=== PATIENT | male | born 1945 | race Caucasian/White ===

== ENCOUNTER 2018-08-03 10:30 | Emergency (ER) | payer MEDICARE ==
[~2018-08-03] VITALS: Ht 180.3 cm; Wt 95.3 kg
[~2018-08-03 10:30] MED LIST: ALL100T PO; FAM20T PO; HYDR-531 PO; IND25C PO; METO-159 PO
[2018-08-03 10:52] VITALS: BP 151/101
== END 2018-08-03 11:56 | disposition home or self-care (01) ==
LOC: ER 10:30
DX: M25.521 Pain in right elbow (principal); E78.5 Hyperlipidemia, unspecified; I10 Essential (primary) hypertension; Z79.899 Other long term (current) drug therapy
CPT/HCPCS: 73080

== ENCOUNTER 2018-12-18 09:49 | Emergency (ER) | payer MEDICARE ==
[~2018-12-18] VITALS: Ht 180.3 cm; Wt 97.5 kg
[~2018-12-18 09:49] MED LIST changes: -IND25C PO; +INDO25CA17 PO
[2018-12-18 10:02] VITALS: BP 135/85
== END 2018-12-18 10:53 | disposition home or self-care (01) ==
LOC: ER 09:49
DX: H10.32 Unspecified acute conjunctivitis, left eye (principal); I10 Essential (primary) hypertension; E78.00 Pure hypercholesterolemia, unspecified; Z79.899 Other long term (current) drug therapy

== ENCOUNTER → 2019-01-13 | Outpatient (CLI) | payer MEDICARE | END | disposition home or self-care (01) | LOC: Rad HDHVI 12:53 | PROVIDERS: ATTEND Internal Medicine Cardiovascular Disease | DX: I08.1 Rheumatic disorders of both mitral and tricuspid valves (principal); I10 Essential (primary) hypertension; R00.2 Palpitations; R42 Dizziness and giddiness | CPT/HCPCS: 93306; 93880 ==

== ENCOUNTER 2019-01-29 10:40 | Emergency (ER) | payer MEDICARE ==
[~2019-01-29] VITALS: Ht 180.3 cm; Wt 90.7 kg
[2019-01-29 11:17] VITALS: BP 142/91
[2019-01-29] MEDS ORDERED: ACETAMINOPHEN 500 MG TAB PO ONE (13:00)
== END 2019-01-29 13:11 | disposition home or self-care (01) ==
LOC: ER 10:40
DX: M17.12 Unilateral primary osteoarthritis, left knee (principal); I12.9 Hypertensive chronic kidney disease with stage 1 through stage 4 chronic kidney disease, or unspecified chronic kidney disease; N18.9 Chronic kidney disease, unspecified; E78.5 Hyperlipidemia, unspecified
CPT/HCPCS: 73562

== ENCOUNTER → 2019-02-01 | Outpatient (CLI) | payer MEDICARE ==
[~2019-02-01] VITALS: Ht 180.3 cm; Wt 92.5 kg
[~2019-02-01] MED LIST changes: +ADENOSINE 78 MG in GIVE UN-DILUTED 0 ML IV ONE; +ADENOSINE 90 MG/30 ML INJ IV ONE; +METOPROLOL SUCCINATE XL 50 MG TAB PO ONE
[2019-02-01 16:09] LABS: Albumin 3.2 g/dL (3.4-5.0); Calcium 9.3 mg/dL (8.5-10.1); Potassium 3.4 mmol/L (3.5-5.1)
[2019-02-01 16:13] LABS: BUN/Creatinine Ratio 16.2; Bilirubin, Total 1.3 mg/dL (0.2-1.0); Total Protein 7.5 g/dL (6.4-8.2)
== END | disposition home or self-care (01) ==
LOC: Rad HDHVI 12:35
PROVIDERS: ATTEND Internal Medicine Cardiovascular Disease
DX: R00.0 Tachycardia, unspecified (principal); I10 Essential (primary) hypertension; R06.02 Shortness of breath; R42 Dizziness and giddiness
CPT/HCPCS: 36415; 78452; 80053; 83735; 93005; 96374; 96375; A9500; J0153

== ENCOUNTER 2019-02-05 12:25 | Emergency (ER) | payer MEDICARE, OTHER ==
[~2019-02-05] VITALS: Ht 180.3 cm; Wt 90.7 kg
[~2019-02-05 12:25] MED LIST changes: -ADENOSINE 78 MG in GIVE UN-DILUTED 0 ML IV ONE; -ADENOSINE 90 MG/30 ML INJ IV ONE; -METOPROLOL SUCCINATE XL 50 MG TAB PO ONE
[2019-02-05 12:51] VITALS: BP 131/80
[2019-02-05] MEDS ORDERED: methylPREDNISolone SOD SUCC 125 MG/2 ML VL IM ONE (13:45)
== END 2019-02-05 14:30 | disposition home or self-care (01) ==
LOC: ER 12:32
DX: M10.9 Gout, unspecified (principal); E78.5 Hyperlipidemia, unspecified; I10 Essential (primary) hypertension; Z88.6 Allergy status to analgesic agent; Z79.899 Other long term (current) drug therapy
CPT/HCPCS: 96372; 99283; J2930

== ENCOUNTER 2022-08-09 21:46 | Emergency (ER) | payer MEDICARE, OTHER ==
[~2022-08-09] VITALS: Ht 180.3 cm; Wt 95.7 kg
[~2022-08-09 21:46] MED LIST changes: -FAM20T PO; +FAMO20TA10 PO
[2022-08-09] MEDS ORDERED: KETOROLAC TROMETH 60MG/2ML VIAL IM ONE (22:15)
[2022-08-09 22:37] LABS: Basophils # (auto) 0.1 10 ^3/uL (0-0.2); Eosinophils # (auto) 0.2 10 ^3/uL (0-0.8); Eosinophils % (auto) 1.4 % (0.0-7.0); Hematocrit 46.2 % (41.0-53.0); Hemoglobin 16.2 g/dL (13.5-17.5); Lymphocytes % (auto) 7.8 % (10.0-50.0); Mean Corpuscular Volume 88.6 fL (80.0-100.0); Monocytes # (auto) 1.3 10 ^3/uL (0-1.3); Monocytes % (auto) 10.3 % (0.0-12.0); Neutrophils # (auto) 10.1 10 ^3/uL (1.6-8.6); Neutrophils % (auto) 79.5 % (37.0-80.0); Nucleated Red Blood Cells % 0.1 %; Red Blood Cells 5.21 10^6/uL (4.5-5.90); Red Cell Distribution Width 13.6 % (11.8-14.3); White Blood Cell 12.7 10^3/uL (4.4-10.8)
[2022-08-09 22:45] LABS: Albumin 4.1 g/dL (3.4-5.0); Calcium 9.5 mg/dL (8.5-10.1); Potassium 3.4 mmol/L (3.5-5.1)
[2022-08-09 22:49] LABS: Bilirubin, Total 0.6 mg/dL (0.2-1.0); Total Protein 7.5 g/dL (6.4-8.2); Uric Acid 5.6 mg/dL (3.5-7.2)
[2022-08-10] MEDS ORDERED: HYDR-4902 PO (00:01)
[2022-08-10] MEDS ORDERED: IBUP600T27 PO (00:01)
[2022-08-10 00:04] VITALS: BP 144/92
== END 2022-08-10 02:07 | disposition home or self-care (01) ==
LOC: ER 21:46
DX: S52.101A Unspecified fracture of upper end of right radius, initial encounter for closed fracture (principal); E78.5 Hyperlipidemia, unspecified; I10 Essential (primary) hypertension; Z88.6 Allergy status to analgesic agent; X58.XXXA Exposure to other specified factors, initial encounter; Y93.89 Activity, other specified; Y92.89 Other specified places as the place of occurrence of the external cause; Y99.8 Other external cause status
CPT/HCPCS: 29105; 36415; 73080; 80053; 84550; 85025; 96372; 99284; J1885

== ENCOUNTER 2022-09-17 14:51 | Emergency (ER) | payer OTHER ==
[~2022-09-17] VITALS: Ht 180.3 cm; Wt 91.9 kg
[~2022-09-17 14:51] MED LIST changes: +HYDR-4902 PO; +IBUP-1454 PO; +INDO-34 PO; -INDO25CA17 PO
[2022-09-17 15:35] VITALS: BP 142/89
== END 2022-09-17 16:54 | disposition home or self-care (01) ==
LOC: ER 14:51
DX: S00.86XA Insect bite (nonvenomous) of other part of head, initial encounter (principal); E78.5 Hyperlipidemia, unspecified; I10 Essential (primary) hypertension; Z88.5 Allergy status to narcotic agent; W57.XXXA Bitten or stung by nonvenomous insect and other nonvenomous arthropods, initial encounter; Y93.89 Activity, other specified; Y92.89 Other specified places as the place of occurrence of the external cause; Y99.8 Other external cause status

== ENCOUNTER 2022-10-03 15:53 | Emergency (ER) | payer OTHER ==
[~2022-10-03] VITALS: Ht 180.3 cm; Wt 92.3 kg
[2022-10-03] MEDS ORDERED: ACETAMINOPHEN 325 MG TAB PO ONE (16:30)
[2022-10-03 16:34] VITALS: BP 130/82
[2022-10-03] MEDS ORDERED: methylPREDNISolone ACETATE 80 MG/ML VL IM ONE (17:00)
[2022-10-03] MEDS ORDERED: KETOROLAC TROMETH 30 MG/ML 1ML VIAL IM ONE (17:00)
[2022-10-03] MEDS ORDERED: DexAMETHasone SOD PHOS 10MG/1ML VIAL INJ IM ONE (17:30)
[2022-10-03 17:35] LABS: Eosinophils # (auto) 0.1 10 ^3/uL (0-0.8); Mean Corpuscular Hgb Conc. 34.8 g/dL (32.0-36.0); Red Blood Cells 4.97 10^6/uL (4.5-5.90)
[2022-10-03 17:36] LABS: BUN/Creatinine Ratio 14.4 (10.0-20.0); Calcium 9.4 mg/dL (8.5-10.1)
[2022-10-03 17:49] LABS: Basophils # (auto) 0 10 ^3/uL (0-0.2); Basophils % (auto) 0.4 % (0.0-2.0); Eosinophils % (auto) 0.4 % (0.0-7.0); Hematocrit 43.4 % (41.0-53.0); Hemoglobin 15.1 g/dL (13.5-17.5); Lymphocytes # (auto) 0.8 10 ^3/uL (0.4-5.4); Lymphocytes % (auto) 6.9 % (10.0-50.0); Mean Corpuscular Hemoglobin 30.4 pg (28.0-32.0); Mean Corpuscular Volume 87.4 fL (80.0-100.0); Monocytes # (auto) 1.4 10 ^3/uL (0-1.3); Neutrophils # (auto) 9.4 10 ^3/uL (1.6-8.6); Neutrophils % (auto) 80.3 % (37.0-80.0); Red Cell Distribution Width 13.4 % (11.8-14.3); White Blood Cell 11.7 10^3/uL (4.4-10.8)
[2022-10-03 17:56] LABS: Potassium 2.8 mmol/L (3.5-5.1)
[2022-10-03] MEDS ORDERED: CEPH500C PO (18:11)
[2022-10-03] MEDS ORDERED: PRED20TA2 PO (18:11)
[2022-10-03] MEDS ORDERED: POTASSIUM EFFERVESENT TAB 25 MEQ PO ONE (18:15)
== END 2022-10-03 18:37 | disposition home or self-care (01) ==
LOC: ER 15:53
DX: M10.9 Gout, unspecified (principal); E87.6 Hypokalemia; E78.5 Hyperlipidemia, unspecified; I10 Essential (primary) hypertension; Z88.6 Allergy status to analgesic agent; Z88.1 Allergy status to other antibiotic agents
CPT/HCPCS: 36415; 80048; 84550; 85025; 93971; 96372; 99285; J1100; J1885

== ENCOUNTER 2022-11-20 04:48 | Emergency (ER) | payer OTHER ==
[~2022-11-20] VITALS: Ht 180.3 cm; Wt 92.3 kg
[~2022-11-20 04:48] MED LIST changes: +AMLO1TAB23 PO; -FAMO20TA10 PO; -HYDR-4902 PO; -IBUP-1454 PO; -INDO-34 PO; -METO-159 PO; +MODA100T52 PO; +PRIM50TA5 GT; +TAMS0.4C36 PO; +TRIA75TA11 PO
[2022-11-20 05:43] LABS: Basophils # (auto) 0.1 10 ^3/uL (0-0.2); Basophils % (auto) 0.5 % (0.0-2.0); Eosinophils # (auto) 0.3 10 ^3/uL (0-0.8); Eosinophils % (auto) 2.8 % (0.0-7.0); Hematocrit 44.4 % (41.0-53.0); Hemoglobin 15.4 g/dL (13.5-17.5); Lymphocytes # (auto) 1.2 10 ^3/uL (0.4-5.4); Lymphocytes % (auto) 10.5 % (10.0-50.0); Mean Corpuscular Hemoglobin 30.6 pg (28.0-32.0); Mean Corpuscular Hgb Conc. 34.6 g/dL (32.0-36.0); Mean Corpuscular Volume 88.4 fL (80.0-100.0); Monocytes # (auto) 1.3 10 ^3/uL (0-1.3); Neutrophils # (auto) 8.3 10 ^3/uL (1.6-8.6); Neutrophils % (auto) 74.2 % (37.0-80.0); Nucleated Red Blood Cells % 0.1 %; Red Blood Cells 5.02 10^6/uL (4.5-5.90); Red Cell Distribution Width 14.1 % (11.8-14.3); White Blood Cell 11.2 10^3/uL (4.4-10.8)
[2022-11-20 05:51] LABS: INR 1.04 (0.9-1.15); Prothrombin Time 10.9 sec (9.3-11.8)
[2022-11-20] MEDS ORDERED: KETOROLAC TROMETH 30 MG/ML 1ML VIAL IV ONE (06:00)
[2022-11-20] MEDS ORDERED: SODIUM CHLORIDE 0.9% 1,000 ML IV ONE (06:00)
[2022-11-20 06:10] LABS: Albumin 3.7 g/dL (3.4-5.0); BUN/Creatinine Ratio 13.1 (10.0-20.0); Bilirubin, Total 0.8 mg/dL (0.2-1.0); Calcium 9.6 mg/dL (8.5-10.1); Total Protein 7.6 g/dL (6.4-8.2)
[2022-11-20 06:20] LABS: Potassium 2.9 mmol/L (3.5-5.1)
[2022-11-20] MEDS ORDERED: POTASSIUM EFFERVESENT TAB 25 MEQ PO ONE (06:30)
[2022-11-20] MEDS ORDERED: DexAMETHasone SOD PHOS 4 MG/1ML SDV INJ IM ONE (08:15)
[2022-11-20] MEDS ORDERED: BUPIVACAINE 0.5% INJ 50ML VIAL IJ ONE (08:15)
[2022-11-20] MEDS ORDERED: DexAMETHasone SOD PHOS 10MG/1ML VIAL INJ ONE (09:14)
[2022-11-20] MEDS ORDERED: DICL50TA2 PO (10:11)
[2022-11-20] MEDS ORDERED: DICL1GEL59 EX (10:11)
[2022-11-20 10:30] VITALS: BP 132/76; PULSE 73; RESP 21; TEMP 98.4; O2SAT 99
== END 2022-11-20 10:32 | disposition home or self-care (01) ==
LOC: ER 04:48
DX: M75.52 Bursitis of left shoulder (principal); E87.6 Hypokalemia; I12.9 Hypertensive chronic kidney disease with stage 1 through stage 4 chronic kidney disease, or unspecified chronic kidney disease; N18.30 Chronic kidney disease, stage 3 unspecified; I25.10 Atherosclerotic heart disease of native coronary artery without angina pectoris; E78.5 Hyperlipidemia, unspecified; M10.9 Gout, unspecified; Z79.899 Other long term (current) drug therapy; Z88.5 Allergy status to narcotic agent
CPT/HCPCS: 20552; 36415; 71045; 73030; 80053; 83880; 84484; 85025; 85379; 85610; 85730; 93005; 96361; 96372; 96374; 99285; J1100; J1885; J3490; J7030

== ENCOUNTER 2023-02-17 17:17 | Emergency (ER) | payer OTHER ==
[~2023-02-17] VITALS: Ht 180.3 cm; Wt 93.0 kg
[~2023-02-17 17:17] MED LIST changes: +DICL1GEL59 EX; +DICL50TA2 PO
[2023-02-17 17:21] VITALS: BP 140/88; RESP 18; O2SAT 94
[2023-02-17 18:38] LABS: Basophils # (auto) 0.1 10 ^3/uL (0-0.2); Basophils % (auto) 0.7 % (0.0-2.0); Eosinophils # (auto) 0.4 10 ^3/uL (0-0.8); Eosinophils % (auto) 4.2 % (0.0-7.0); Hematocrit 44.4 % (41.0-53.0); Hemoglobin 15.4 g/dL (13.5-17.5); Lymphocytes # (auto) 1.5 10 ^3/uL (0.4-5.4); Lymphocytes % (auto) 14.5 % (10.0-50.0); Mean Corpuscular Hemoglobin 30.9 pg (28.0-32.0); Mean Corpuscular Hgb Conc. 34.7 g/dL (32.0-36.0); Mean Corpuscular Volume 89.2 fL (80.0-100.0); Monocytes # (auto) 1.4 10 ^3/uL (0-1.3); Monocytes % (auto) 13.8 % (0.0-12.0); Neutrophils % (auto) 66.8 % (37.0-80.0); Nucleated Red Blood Cells % 0.1 %; Red Blood Cells 4.97 10^6/uL (4.5-5.90); Red Cell Distribution Width 13.4 % (11.8-14.3); White Blood Cell 10.4 10^3/uL (4.4-10.8)
[2023-02-17 18:50] LABS: Alanine Aminotransferase 13 U/L (7-40); Albumin 4.8 g/dL (3.2-4.8); Alkaline Phosphatase 111 U/L (46-116); Anion Gap 8 (5-15); Aspartate Aminotransferase 13 U/L (13-40); BUN/Creatinine Ratio 10.9 (10.0-20.0); Blood Urea Nitrogen 15 mg/dL (9-23); Calcium 10.1 mg/dL (8.7-10.4); Carbon Dioxide 26 mmol/L (20-30); Chloride 106 mmol/L (98-107); Glucose 87 mg/dL (74-106); Lipase 47 U/L (12-53); Potassium 3.5 mmol/L (3.5-5.1); Sodium 140 mmol/L (136-145)
[2023-02-17 18:51] LABS: Bilirubin, Total 1.3 mg/dL (0.2-1.0); Total Protein 6.9 g/dL (5.7-8.2)
[2023-02-17 20:36] VITALS: PULSE 110
[2023-02-17] MEDS ORDERED: IOHEXOL 350 MG/ML 100ML IJ ONE (21:49)
[2023-02-17 22:54] LABS: Urine Bacteria NONE SEEN /hpf (None Seen); Urine Blood 3+ /uL (Negative); Urine Clarity Clear (Clear); Urine Color Yellow (Yellow); Urine Mucus FEW (None Seen); Urine Protein, UAD TRACE (Negative); Urine Urobilinogen Normal (Negative); Urine WBC <1 /hpf (0 - 3)
[2023-02-17 22:59] LABS: Urine Specific Gravity > 1.050 (1.001-1.035)
== END 2023-02-18 02:44 | disposition left against medical advice (07) ==
LOC: ER 17:17
DX: K42.9 Umbilical hernia without obstruction or gangrene (principal); I12.9 Hypertensive chronic kidney disease with stage 1 through stage 4 chronic kidney disease, or unspecified chronic kidney disease; N18.9 Chronic kidney disease, unspecified; R10.33 Periumbilical pain; I25.10 Atherosclerotic heart disease of native coronary artery without angina pectoris; E78.5 Hyperlipidemia, unspecified; Z98.890 Other specified postprocedural states; Z88.8 Allergy status to other drugs, medicaments and biological substances; Z79.899 Other long term (current) drug therapy
CPT/HCPCS: 36415; 71045; 74177; 80053; 81001; 83605; 83690; 84484; 85025; 87040; 93005; 99285; Q9967

== ENCOUNTER 2024-04-02 12:17 | Emergency (ER) | payer OTHER ==
[~2024-04-02] VITALS: Ht 180.3 cm; Wt 93.0 kg
[~2024-04-02 12:17] MED LIST changes: -TAMS0.4C36 PO; +TAMS0.4C39 PO
[2024-04-02 13:13] VITALS: TEMP 97.7
--- NOTE | 2024-04-02 14:02 | ED.PDOC ---
History of Present Illness HPI Comments A 78 YEAR OLD MALE PRESENTS TO THE ED WITH COMPLAINT OF HIGH BLOOD PRESSURE. PATIENT STATES HE HAS A HISTORY OF HYPERTENSION AND NOTES HE HAS NOTICED HIS BLOOD PRESSURE HAS BEEN HIGHER THAN USUAL FOR THE PAST 1 WEEK DESPITE TAKING HIS REGULAR MEDICATIONS. PATIENT NOTES HE HAS ALSO HAD A HEADACHE OFF AND ON FOR THE PAST 1 WEEK. PATIENT DENIES VISION CHANGES, SLURRED SPEECH, ONE-SIDED WEAKNESS, FACIAL DROOP, FEVER, CHILLS, SHORTNESS OF BREATH, CHEST PAIN, ABDOMINAL PAIN, NAUSEA, VOMITING, OR OTHER COMPLAINTS. NO OTHER SYMPTOMS OR MODIFYING FACTORS AT THIS TIME. PATIENT IS ALERT, ORIENTED X 4, AND HAS STEADY GAIT. Chief Complaint: High Blood Pressure Time Seen by MD: 12:38 Primary Care Provider: IRENE Reviewed Notes: Nurses Notes, Medications, Allergies Allergies: Coded Allergies: Morphine (Verified Allergy, Unknown, 02/01/19) Home Meds Active Scripts Diclofenac Potassium (Diclofenac Potassium) 50 Mg Tab, 1 TAB PO TIDP for 10 Day s, #30 TAB Prov:DESTINEY CLEMONS MD 11/20/22 Diclofenac Sodium (Topical) (Voltaren Arthritis Pain) 1 % Gel, 1 % EX TID for 10 Days, #100 GEL Prov:DESTINEY CLEMONS MD 11/20/22 Allopurinol (ZYLOPRIM TABLET) 100 Mg Tb, 100 MG PO DAILY, #30 Prov:FINN PURI MD 07/05/16 Reported Medications Primidone (MYSOLINE TABLET) 50 Mg Tb, 50 MG GT for TREMORS, TAB 10/24/22 Modafinil (MODAFINIL) 100 Mg Tab, 100 MG PO for SLEEP DISORDER, TAB 10/24/22 Tamsulosin Hcl (Tamsulosin Hcl) 0.4 Mg Cap, 0.4 MG PO QPM 10/24/22 Hydrochlorothiazide W/Triamter (Hctz/Triamterene) 1 Tab Tab, 1 TAB PO DAILY, TAB 10/24/22 Amlodipine Besylate (Amlodipine Besylate) 10 Mg Tab, 1 TAB PO DAILY for HTN 10/24/22 Hydrocodone-Acetaminophen ([place] 10-325 mg) 1 Tab Tab, 0.5 TAB PO BIDPRN, TAB 07/01/16 Information Source: Patient Mode of Arrival: Ambulatory Severity: Moderate Timing: Days Duration: Since onset, Days Prehospital treatment: None Medication Refill: For: Hypertension, For: Other (HIGH BLOOD PRESSURE AND HEADACHE) Past Medical History PAST MEDICAL HISTORY: CAD, Gout, High Lipids, HTN, NV Surgical History: PTCA Family History Family History: Reviewed,noncontributory to illness Social History Smoker: Non-Smoker Alcohol: Denies ETOH Use Drugs: Denies Drug Use Lives In: Home Constitutional: reports: others (ANXIOUS ); denies: chills, diaphoresis, fatigue, fever, malaise, sweats, weakness EENTM: denies: blurred vision, double vision, ear bleeding, ear discharge, ear drainage, ear pain, ear ringing, eye pain, eye redness, hearing loss, mouth pain, mouth swelling, nasal discharge, nose bleeding, nose congestion, nose pain, photophobia, tearing, throat pain, throat swelling, voice changes, others Respiratory: denies: cough, hemoptysis, orthopnea, SOB at rest, shortness of breath, SOB with excertion, stridor, wheezing, others Cardiovascular: reports: others (HIGH BLOOD PRESSURE); denies: chest pain, dizzy spells, diaphoresis, Dyspnea on exertion, edema, irregular heart beat, left arm pain, lightheadedness, palpitations, PND, syncope Gastrointestinal: denies: abdomen distended, abdominal pain, blood streaked bowels, constipated, diarrhea, dysphagia, difficulty swallowing, hematemesis, melena, nausea, poor appetite, poor fluid intake, rectal bleeding, rectal pain, vomiting, others Genitourinary: denies: burning, dysuria, flank pain, frequency, hematuria, incontinence, penile discharge, penile sore, pain, testicle pain, testicle swelling, urgency, others Neurological: reports: headache; denies: dizziness, fainting, left sided numbness, left sided weakness, numbness, paresthesia, pre-existing deficit, right sided numbness, right sided weakness, seizure, speech problems, tingling, tremors, weakness, others Musculoskeletal: denies: back pain, gout, joint pain, joint swelling, muscle pain, muscle stiffness, neck pain, others Integumetry: denies: bruises, change in color, change in hair/nails, dryness, laceration, lesions, lumps, rash, wounds, others Allergic/Immunocompromised: denies: Difficulty Healing, Frequent Infections, Hives, Itching, others Hematologic/Lymphatic: denies: anemia, blood clots, easy bleeding, easy bruising, swollen glands, others Endocrine: denies: excessive hunger, excessive sweating, excessive thirst, excessive urination, flushing, intolerance to cold, intolerance to heat, unexplained weight gain, unexplained weight loss, others Psychiatric: denies: anxiety, bipolar disorder, depression, hopeless, panic disorder, schizophrenia, sleepless, suicidal, others All Other Systems: Reviewed and Negative Physical Exam General Appearance: No Apparent Distress, Normal, Other (ANXIOUS ) HEENT: Normal ENT Inspection, PERRL/EOMI, Pharynx Normal, TMs Normal Neck: Full Range of Motion, Non-Tender, Normal, Normal Inspection Respiratory: Chest Non-Tender, Lungs Clear, No Accessory Muscle Use, No Respiratory Distress, Normal Breath Sounds Cardiovascular: No Edema, No JVD, No Murmur, No Gallop, Normal Peripheral Pulses, Regular Rate/Rhythm Breast Exam: Deferred Gastrointestinal: No Organomegaly, Non Tender, No Pulsatile Mass, Normal Bowel Sounds, Soft Genitalia: Deferred Pelvic: Deferred Rectal: Deferred Extremities: No calf tenderness, Normal capillary refill, Normal inspection, Normal range of motion, Non-tender, No pedal edema Musculoskeletal : Apperance: Normal Neurologic: Alert, business systems advisor II-XII nml as Tested, No Motor Deficits, Normal Affect, Normal Mood, No Sensory Deficits Cerebellar Function: Normal Reflexes: Normal Skin: Dry, Normal Color, Warm Peripheral Pulses: 2+ carotid (R), 2+ carotid (L) Lymphatic: No Adenopathy Was a procedure done? Was a procedure done?: No Differential Dx Considerations may include: HYPERTENSION, UNCONTROLLED HYPERTENSION, ELECTROLYTE IMBALANCE, HYPOTHYROIDISM X-Ray, Labs, Meds, VS Vital Signs Date Time Temp Pulse Resp B/P (MAP) Pulse Ox O2 Delivery O2 Flow Rate FiO2 04/02/24 14:27 91 151/100 04/02/24 13:52 155/100 (118) 04/02/24 13:13 90 18 100 Room Air 04/02/24 13:13 97.7 90 18 131/104 (113) 100 97.7 04/02/24 12:34 97.7 90 18 131/104 (113) 100 Lab Test 04/02/24 14:20 Range/Units White Blood Count 8.9 4.4-10.8 10^3/uL Red Blood Count 5.42 4.5-5.90 10^6/uL Hemoglobin 17.1 13.5-17.5 g/dL Hematocrit 50.3 41.0-53.0 % Mean Corpuscular Volume 92.8 80.0-100.0 fL Mean Corpuscular Hemoglobin 31.5 28.0-32.0 pg Mean Corpuscular Hemoglobin Concent 33.9 32.0-36.0 g/dL Red Cell Distribution Width 13.8 11.8-14.3 % Platelet Count 228 140-450 10^3/uL Mean Platelet Volume 9.3 6.9-10.8 fL Neutrophils (%) (Auto) 69.4 37.0-80.0 % Lymphocytes (%) (Auto) 16.7 10.0-50.0 % Monocytes (%) (Auto) 10.3 0.0-12.0 % Eosinophils (%) (Auto) 2.8 0.0-7.0 % Basophils (%) (Auto) 0.8 0.0-2.0 % Neutrophils # (Auto) 6.2 1.6-8.6 10 ^3/uL Lymphocytes # (Auto) 1.5 0.4-5.4 10 ^3/uL Monocytes # (Auto) 0.9 0-1.3 10 ^3/uL Eosinophils # (Auto) 0.2 0-0.8 10 ^3/uL Basophils # (Auto) 0.1 0-0.2 10 ^3/uL Nucleated Red Blood Cells 0.1 % Sodium Level 142 136-145 mmol/L Potassium Level 3.4 L 3.5-5.1 mmol/L Chloride Level 108 H 98-107 mmol/L Carbon Dioxide Level 25 20-31 mmol/L Anion Gap 9 5-15 Blood Urea Nitrogen 12 9-23 mg/dL Creatinine 1.46 H 0.700-1.30 mg/dL Glomerular Filtration Rate Calc 50 >90 mL/min BUN/Creatinine Ratio 8.2 L 10.0-20.0 Serum Glucose 105 74-106 mg/dL Calcium Level 10.1 8.7-10.4 mg/dL Troponin I High Sensitivity 5 </=54 ng/L Thyroid Stimulating Hormone (TSH) 2.54 0.55-4.78 uIU/mL Current Medications Medications (Trade) Dose Ordered Sig/Deng Route Start Time Stop Time Status Last Admin Metoprolol Tartrate (Lopressor Tablet) 50 mg ONCE ONCE PO 04/02/24 14:30 04/02/24 14:31 DC 04/02/24 14:27 EXAM: CT HEAD WITHOUT CONTRAST HISTORY: HTN WITH HEADACHE COMPARISON: None TECHNIQUE: Axial images of the head were obtained and reformatted in coronal and sagittal planes. All CT scans at this medical facility are performed using dose modulation techniques as appropriate to a performed exam including the following: Automated exposure control was utilized; adjustment of the MA and/or KV according to patient size; and use of iterative reconstruction technique. CT Dose: CTDI volume is 67.11 mGy. Dose-length product is 1456.49 mGy*cm FINDINGS: There is no evidence of acute intracranial hemorrhage, mass, mass effect midline shift. There is no hydrocephalus or extra-axial fluid collection. There are moderate chronic small-vessel ischemic changes in the supratentorial white matter. Christian-white matter differentiation is maintained. The visualized paranasal sinuses and mastoid air cells are clear. The calvarium is intact. IMPRESSION: 1. No acute intracranial process. HS:Y ATED BY: FIDEL SERVIN MD DICTATED DATE/TIME: 04/02/241418 SIGNED BY: FIDEL SERVIN MD SIGNED DATE/TIME: 04/02/241418 CC: X-Ray, Labs, Meds, VS Comment EXTERNAL MEDICAL RECORDS REVIEWED: [NONE] INDEPENDENT HISTORIANS: [NONE] SOCIAL DETERMINANTS OF HEALTH: [NONE] LABS ORDERED: CBC, BMP, TSH, TROPONIN, UA REVIEWED AND INTERPRETED RESULTS: IMAGING ORDERED: CT BRAIN TREATMENTS ORDERED: LOPRESSOR 50MG PO PATIENT STATED HE FEELS MUCH BETTER AFTER RECEIVING TREATMENT. I HAVE INSTRUCTED THE PATIENT TO INCREASE HIS LOPRESSOR 25MG TO LOPRESSOR 50MG. PATIENT UNDERSTANDS AND AGREES WITH PLAN OF CARE. PROCEDURES PERFORMED: NONE CRITICAL CARE TIME: NONE I HAVE DISCUSSED THE PATIENT WITH THE ATTENDING PHYSICIAN DR. WEBB AND HE AGREES WITH THE PATIENT'S PLAN OF CARE AND DISPOSITION. BASED ON HISTORY OF PRESENT ILLNESS, AND PHYSICAL EXAM, PATIENT WILL BE DISCHARGED HOME. SHARED DECISION MAKING: PATIENT INSTRUCTED TO FOLLOW UP WITH PRIMARY CARE PROVIDER IN 1-2 DAYS FOR RE-EVALUATION OF SYMPTOMS. PATIENT VERBALIZES UNDERSTANDING TO RETURN TO ED FOR NEW OR WORSENING SYMPTOMS OR IF FOLLOW UP WITH PCP CANNOT BE OBTAINED. PATIENT FEELS COMFORTABLE GOING HOME AT THIS TIME. ALL QUESTIONS ADDRESSED AT TIME OF DISCHARGE. Images Reviewed?: Images reviewed and evaluated by me Time of 1ST Reevaluation: 15:30 Reevaluation 1ST: Improved Patient Education/Counseling: Diagnosis, Treatment, Need For Follow Up Family Education/Counseling: Diagnosis, Treatment, Need For Follow Up Medical Screening: No EMC Exist At This Time Departure 1 Departure Time of Disposition: 15:30 Impression: Primary Impression: HTN (hypertension) Qualified Codes: I10 - Essential (primary) hypertension Disposition: 01 HOME / SELF CARE / HOMELESS Condition: Stable Additional Instructions: FOLLOW-UP WITH PCP IN 1 TO 2 DAYS. TAKE MEDICATIONS PRESCRIBED. RETURN TO ED FOR ANY NEW OR WORSENING SYMPTOMS. Discharged With: Self, Relative Critical Care Note Critical Care Time?: No Stability Stability form required: No I personally scribed for MELVIN RHOADES ([email or web address]) on 04/02/24 at 14:02. Electronically submitted by William Quinteros ([email or web address]). I personally scribed for MELVIN RHOADES ([email or web address]) on 04/02/24 at 14:23. Electronically submitted by William Quinteros ([email or web address]). MELVIN RHOADES Apr 02, 2024 14:02
--- NOTE | 2024-04-02 14:20 | DVH ---
EXAM: CT HEAD WITHOUT CONTRAST HISTORY: HTN WITH HEADACHE COMPARISON: None TECHNIQUE: Axial images of the head were obtained and reformatted in coronal and sagittal planes. All CT scans at this medical facility are performed using dose modulation techniques as appropriate t o a performed exam including the following: Automated exposure control was utilized; adjustment of th e MA and/or KV according to patient size; and use of iterative reconstruction technique. CT Dose: CTDI volume is 67.11 mGy. Dose-length product is 1456.49 mGy*cm FINDINGS: There is no evidence of acute intracranial hemorrhage, mass, mass effect midline shift. There is no h ydrocephalus or extra-axial fluid collection. There are moderate chronic small-vessel ischemic change s in the supratentorial white matter. Christian-white matter differentiation is maintained. The visualized paranasal sinuses and mastoid air cells are clear. The calvarium is intact. IMPRESSION: 1. No acute intracranial process. HS:Y
[2024-04-02] MEDS: METOPROLOL TARTRATE 50 MG TAB PO ONE (14:27)
[2024-04-02 14:40] LABS: Basophils # (auto) 0.1 10 ^3/uL (0-0.2); Basophils % (auto) 0.8 % (0.0-2.0); Eosinophils # (auto) 0.2 10 ^3/uL (0-0.8); Eosinophils % (auto) 2.8 % (0.0-7.0); Hematocrit 50.3 % (41.0-53.0); Hemoglobin 17.1 g/dL (13.5-17.5); Lymphocytes # (auto) 1.5 10 ^3/uL (0.4-5.4); Lymphocytes % (auto) 16.7 % (10.0-50.0); Mean Corpuscular Hemoglobin 31.5 pg (28.0-32.0); Mean Corpuscular Hgb Conc. 33.9 g/dL (32.0-36.0); Mean Corpuscular Volume 92.8 fL (80.0-100.0); Monocytes # (auto) 0.9 10 ^3/uL (0-1.3); Monocytes % (auto) 10.3 % (0.0-12.0); Neutrophils # (auto) 6.2 10 ^3/uL (1.6-8.6); Neutrophils % (auto) 69.4 % (37.0-80.0); Nucleated Red Blood Cells % 0.1 %; Platelet Count (auto) 228 10^3/uL (140-450); Red Blood Cells 5.42 10^6/uL (4.5-5.90); Red Cell Distribution Width 13.8 % (11.8-14.3); White Blood Cell 8.9 10^3/uL (4.4-10.8)
[2024-04-02 14:52] LABS: Sodium 142 mmol/L (136-145)
[2024-04-02 14:53] LABS: Anion Gap 9 (5-15); Calcium 10.1 mg/dL (8.7-10.4); Carbon Dioxide 25 mmol/L (20-31)
[2024-04-02 14:58] LABS: BUN/Creatinine Ratio 8.2 (10.0-20.0); Blood Urea Nitrogen 12 mg/dL (9-23); Glucose 105 mg/dL (74-106)
[2024-04-02 15:05] LABS: Chloride 108 mmol/L (98-107); Potassium 3.4 mmol/L (3.5-5.1)
[2024-04-02 15:25] VITALS: BP 138/95; PULSE 83; RESP 18; O2SAT 94
[2024-04-02 15:34] LABS: Urine Bacteria FEW /hpf (None Seen); Urine Blood 2+ /uL (Negative); Urine Clarity Turbid (Clear); Urine Color Yellow (Yellow); Urine Mucus FEW (None Seen); Urine Protein, UAD TRACE (Negative); Urine Specific Gravity 1.019 (1.001-1.035); Urine Urobilinogen Normal (Negative); Urine WBC 8 /hpf (0 - 3)
== END 2024-04-02 15:34 | disposition home or self-care (01) ==
LOC: ER 12:17
DX: I10 Essential (primary) hypertension (principal); E78.5 Hyperlipidemia, unspecified; M10.9 Gout, unspecified; Z79.899 Other long term (current) drug therapy; Z88.5 Allergy status to narcotic agent
CPT/HCPCS: 36415; 70450; 80048; 81001; 84443; 84484; 85025

== ENCOUNTER 2024-08-18 17:49 | Inpatient (IN) | payer OTHER ==
[~2024-08-18] VITALS: Ht 180.3 cm; Wt 97.0 kg
[2024-08-18 18:37] LABS: Basophils # (auto) 0.1 10 ^3/uL (0-0.2); Basophils % (auto) 0.8 % (0.0-2.0); Eosinophils # (auto) 0.3 10 ^3/uL (0-0.8); Eosinophils % (auto) 3.3 % (0.0-7.0); Hematocrit 47.3 % (41.0-53.0); Hemoglobin 16.2 g/dL (13.5-17.5); Lymphocytes % (auto) 11.7 % (10.0-50.0); Mean Corpuscular Hemoglobin 31.4 pg (28.0-32.0); Mean Corpuscular Hgb Conc. 34.2 g/dL (32.0-36.0); Mean Corpuscular Volume 91.8 fL (80.0-100.0); Monocytes # (auto) 0.7 10 ^3/uL (0-1.3); Monocytes % (auto) 7.9 % (0.0-12.0); Neutrophils # (auto) 6.8 10 ^3/uL (1.6-8.6); Neutrophils % (auto) 76.3 % (37.0-80.0); Nucleated Red Blood Cells % 0.1 %; Platelet Count (auto) 200 10^3/uL (140-450); Red Blood Cells 5.15 10^6/uL (4.5-5.90); Red Cell Distribution Width 13.7 % (11.8-14.3); White Blood Cell 8.9 10^3/uL (4.4-10.8)
--- NOTE | 2024-08-18 18:41 | ED.PDOC ---
History of Present Illness HPI Comments 79 year old male presents to the ED with a chief compliant of dizziness onset today (08/18/24) around 15:30. Patient states he was walking to apartment when he felt "head explode" began experiencing dizziness, LT sided weakness, episode lasted about 15 minutes. Patient was able to drive himself to ED, states symptoms have now resolved but is concerned. He is currently on Plavix, last dose was last night. Patient checked BP at home, states it was normal. PMHx CAD, MT, HTN, HLD, gout. Denies dizziness, headache, chest pain, shortness of breath, numbness/tingling, blurry vision, abdominal pain, fevers, dysuria. No other symptoms or modifying factors present at this time. Time Seen by MD: 18:20 Primary Care Provider: IRENE Reviewed Notes: Medications, Allergies Allergies: Coded Allergies: Morphine (Verified Allergy, Unknown, 02/01/19) Home Meds Active Scripts Diclofenac Potassium (Diclofenac Potassium) 50 Mg Tab, 1 TAB PO TIDP for 10 Days, #30 TAB Prov:DESTINEY CLEMONS MD 11/20/22 Diclofenac Sodium (Topical) (Voltaren Arthritis Pain) 1 % Gel, 1 % EX TID for 10 Days, #100 GEL Prov:DESTINEY CLEMONS MD 11/20/22 Allopurinol (ZYLOPRIM TABLET) 100 Mg Tb, 100 MG PO DAILY, #30 Prov:FINN PURI MD 07/05/16 Reported Medications Primidone (MYSOLINE TABLET) 50 Mg Tb, 50 MG GT for TREMORS, TAB 10/24/22 Modafinil (MODAFINIL) 100 Mg Tab, 100 MG PO for SLEEP DISORDER, TAB 10/24/22 Tamsulosin Hcl (Tamsulosin Hcl) 0.4 Mg Cap, 0.4 MG PO QPM 10/24/22 Hydrochlorothiazide W/Triamter (Hctz/Triamterene) 1 Tab Tab, 1 TAB PO DAILY, TAB 10/24/22 Amlodipine Besylate (Amlodipine Besylate) 10 Mg Tab, 1 TAB PO DAILY for HTN 10/24/22 Hydrocodone-Acetaminophen ([place] 10-325 mg) 1 Tab Tab, 0.5 TAB PO BIDPRN, TAB 07/01/16 Information Source: Patient Mode of Arrival: Ambulatory Severity: Moderate Timing: Hours Duration: Since onset Prehospital treatment: None Past Medical History PAST MEDICAL HISTORY: CAD, Gout, High Lipids, HTN, MT Surgical History: PTCA Family History Family History: Reviewed,noncontributory to illness Social History Smoker: Non-Smoker Alcohol: Denies ETOH Use Drugs: Denies Drug Use Lives In: Home Constitutional: denies: chills, diaphoresis, fatigue, fever, malaise, sweats, weakness, others EENTM: denies: blurred vision, double vision, ear bleeding, ear discharge, ear drainage, ear pain, ear ringing, eye pain, eye redness, hearing loss, mouth pain, mouth swelling, nasal discharge, nose bleeding, nose congestion, nose pain, photophobia, tearing, throat pain, throat swelling, voice changes, others Respiratory: denies: cough, hemoptysis, orthopnea, SOB at rest, shortness of breath, SOB with excertion, stridor, wheezing, others Cardiovascular: denies: chest pain, dizzy spells, diaphoresis, Dyspnea on exertion, edema, irregular heart beat, left arm pain, lightheadedness, palpitations, PND, syncope, others Gastrointestinal: denies: abdomen distended, abdominal pain, blood streaked bowels, constipated, diarrhea, dysphagia, difficulty swallowing, hematemesis, melena, nausea, poor appetite, poor fluid intake, rectal bleeding, rectal pain, vomiting, others Genitourinary: denies: burning, dysuria, flank pain, frequency, hematuria, incontinence, penile discharge, penile sore, pain, testicle pain, testicle swelling, urgency, others Neurological: reports: dizziness, left sided weakness; denies: fainting, headache, left sided numbness, numbness, paresthesia, pre-existing deficit, right sided numbness, right sided weakness, seizure, speech problems, tingling, tremors, weakness, others Musculoskeletal: denies: back pain, gout, joint pain, joint swelling, muscle pain, muscle stiffness, neck pain, others Integumetry: denies: bruises, change in color, change in hair/nails, dryness, laceration, lesions, lumps, rash, wounds, others Allergic/Immunocompromised: denies: Difficulty Healing, Frequent Infections, Hives, Itching, others Hematologic/Lymphatic: denies: anemia, blood clots, easy bleeding, easy bruising, swollen glands, others Endocrine: denies: excessive hunger, excessive sweating, excessive thirst, excessive urination, flushing, intolerance to cold, intolerance to heat, unexplained weight gain, unexplained weight loss, others Psychiatric: denies: anxiety, bipolar disorder, depression, hopeless, panic disorder, schizophrenia, sleepless, suicidal, others All Other Systems: Reviewed and Negative Physical Exam General Appearance: No Apparent Distress, Normal HEENT: Normal ENT Inspection, Pharynx Normal, TMs Normal Neck: Full Range of Motion, Non-Tender, Normal, Normal Inspection Respiratory: Chest Non-Tender, Lungs Clear, No Accessory Muscle Use, No Respiratory Distress, Normal Breath Sounds Cardiovascular: No Edema, No JVD, No Murmur, No Gallop, Normal Peripheral Pulses, Regular Rate/Rhythm Breast Exam: Deferred Gastrointestinal: No Organomegaly, Non Tender, No Pulsatile Mass, Normal Bowel Sounds, Soft Genitalia: Deferred Pelvic: Deferred Rectal: Deferred Extremities: No calf tenderness, Normal capillary refill, Normal inspection, Normal range of motion, Non-tender, No pedal edema Musculoskeletal : Apperance: Normal Neurologic: Alert, visitor service assistant II-XII nml as Tested, No Motor Deficits, Normal Affect, Normal Mood, No Sensory Deficits Cerebellar Function: Normal Reflexes: Normal Skin: Dry, Normal Color, Warm Lymphatic: No Adenopathy Was a procedure done? Was a procedure done?: No EKG EKG : Pulse Rate (adult): 68 Cardiac Rhythm: NSR Differential Dx Considerations may include: Differential diagnosis includes but is not limited to: cardiac arrythmia, dehydration, sepsis, electrolyte abnormality, symptomatic anemia, hypovolemia and others X-Ray, Labs, Meds, VS Vital Signs Date Time Temp Pulse Resp B/P (MAP) Pulse Ox O2 Delivery O2 Flow Rate FiO2 08/18/24 19:29 68 08/18/24 18:54 68 08/18/24 18:52 98.3 69 17 126/79 (95) 94 98.3 Lab Test 08/18/24 18:57 08/18/24 18:28 Range/Units POC Glucose 98 70-106 mg/dl White Blood Count 8.9 4.4-10.8 10^3/uL Red Blood Count 5.15 4.5-5.90 10^6/uL Hemoglobin 16.2 13.5-17.5 g/dL Hematocrit 47.3 41.0-53.0 % Mean Corpuscular Volume 91.8 80.0-100.0 fL Mean Corpuscular Hemoglobin 31.4 28.0-32.0 pg Mean Corpuscular Hemoglobin Concent 34.2 32.0-36.0 g/dL Red Cell Distribution Width 13.7 11.8-14.3 % Platelet Count 200 140-450 10^3/uL Mean Platelet Volume 8.9 6.9-10.8 fL Neutrophils (%) (Auto) 76.3 37.0-80.0 % Lymphocytes (%) (Auto) 11.7 10.0-50.0 % Monocytes (%) (Auto) 7.9 0.0-12.0 % Eosinophils (%) (Auto) 3.3 0.0-7.0 % Basophils (%) (Auto) 0.8 0.0-2.0 % Neutrophils # (Auto) 6.8 1.6-8.6 10 ^3/uL Lymphocytes # (Auto) 1.0 0.4-5.4 10 ^3/uL Monocytes # (Auto) 0.7 0-1.3 10 ^3/uL Eosinophils # (Auto) 0.3 0-0.8 10 ^3/uL Basophils # (Auto) 0.1 0-0.2 10 ^3/uL Nucleated Red Blood Cells 0.1 % Prothrombin Time 10.9 9.3-11.8 sec Prothrombin Time INR 1.03 0.9-1.15 Activated Partial Thromboplast Time 28.0 24.5-34.5 SEC Sodium Level 145 136-145 mmol/L Potassium Level 3.7 3.5-5.1 mmol/L Chloride Level 110 H 98-107 mmol/L Carbon Dioxide Level 27 20-31 mmol/L Anion Gap 8 5-15 Blood Urea Nitrogen 14 9-23 mg/dL Creatinine 1.39 H 0.700-1.30 mg/dL Glomerular Filtration Rate Calc 52 >90 mL/min BUN/Creatinine Ratio 10.1 10.0-20.0 Serum Glucose 105 74-106 mg/dL Calcium Level 10.3 8.7-10.4 mg/dL Magnesium Level 1.9 1.6-2.6 mg/dL Total Bilirubin 0.5 0.2-1.0 mg/dL Aspartate Amino Transferase (AST) 18 13-40 U/L Alanine Aminotransferase (ALT) 21 7-40 U/L Alkaline Phosphatase 80 46-116 U/L Troponin I High Sensitivity 4 </=54 ng/L B-Type Natriuretic Peptide 17.87 0-100 pg/mL Total Protein 6.6 5.7-8.2 g/dL Albumin 4.6 3.2-4.8 g/dL [place] [address] Ph: [phone] DIAGNOSTIC IMAGING Diagnostic Imaging Report : [id number] Signed PATIENT: CHRISTAL LIVINGSTON RACCT: [id number] UNIT: [id number] : 1945 LOC: ER ROOM / BED: / AGE / SEX: 79 / M ADM STATUS: REG ER SERVICE 32 ORDERING PHYSICIAN: CHALO LION MD PROCEDURE(s): CXR1 - CHEST XRAY 1 VIEW REASON: weakness ORDER NUMBER(s): [id number], ACCESSION NUMBER(s): [id number] CHEST RADIOGRAPH Indication: weakness Technique: Single frontal view of the chest was obtained Comparison: XY CHEST PORTABLE on DOS: 02/17/23, XY CHEST XRAY 1 VIEW on DOS: 11/20/22 FINDINGS: Lines and Tubes: None Lungs: Elevation right diaphragm Pleura: No effusion. No pneumothorax. Cardiomediastinal contours: Unremarkable Bones: No acute osseous abnormality. IMPRESSION: 1. Stable chest x-ray changed from 02/17/2023. ATED BY: JANEY FRIEDMAN Jr., DO DICTATED DATE/TIME: 08/18/242037 SIGNED BY: JANEY FRIEDMAN Jr., DO SIGNED DATE/TIME: 08/18/242037 CC: Time of 1ST Reevaluation: 18:50 Reevaluation 1ST: Unchanged Patient Education/Counseling: Diagnosis, Treatment, Prognosis Family Education/Counseling: No Family Present Additional Information The following tests were ordered, and results were reviewed by me: EKG, TROP x3, CBC, CMP, CT HEAD WO CONTRAST, MAGNESIUM, PTT, PT W/ INR, CT ANGIO HEAD/NECK, XY CHEST, BNP I reviewed and agreed with the following test results read by other providers: CT ANGIO HEAD/NECK, XY CHEST, CT HEAD WO CONTRAST I discussed treatment and results with medical personnel and: patient Comprehensive systems review obtained and negative except for what is stated in the HPI. Departure 1 Departure Time of Disposition: 21:27 Impression: Primary Impression: TIA (transient ischemic attack) Additional Impression: Acute renal injury Disposition: ADMITTED INPATIENT Admit to: Tele Condition: Guarded Discharged With: Self Comments Acute Vertigo and Left-Sided Weakness Chief Complaint: Sudden onset vertigo with left-sided weakness History of Present Illness: 79-year-old male presents to the emergency department with sudden onset of severe vertigo and left-sided weakness that caused him to collapse approximately three hours prior to arrival. The patient reports that both the vertigo and weakness lasted for approximately 30 minutes before completely resolving. At the time of evaluation, the patient denies any persistent left-sided weakness or dizziness. The episode was reportedly unprovoked with no identifiable triggers. Review of Systems: Constitutional: Denies fever, chills Neurological: Positive for transient vertigo and left-sided weakness, now resolved All other systems reviewed and negative Physical Exam: NIH Stroke Scale/Score (NIHSS) from [email or web address] in [place] on 08/18/2024 RESULT SUMMARY: 0 points NIH Stroke Scale INPUTS: 1A: Level of consciousness > 0 = Alert; keenly responsive 1B: Ask month and age > 0 = Both questions right 1C: 'Blink eyes' & 'squeeze hands' > 0 = Performs both tasks 2: Horizontal extraocular movements > 0 = Normal 3: Visual traylor > 0 = No visual loss 4: Facial palsy > 0 = Normal symmetry 5A: Left arm motor drift > 0 = No drift for 10 seconds 5B: Right arm motor drift > 0 = No drift for 10 seconds 6A: Left leg motor drift > 0 = No drift for 5 seconds 6B: Right leg motor drift > 0 = No drift for 5 seconds 7: Limb Ataxia > 0 = No ataxia 8: Sensation > 0 = Normal; no sensory loss 9: Language/aphasia > 0 = Normal; no aphasia 10: Dysarthria > 0 = Normal 11: Extinction/inattention > 0 = No abnormality Lab Results: Chemistry Panel: - Creatinine: 1.39 (Elevated) - BUN: 14 (Normal) - Otherwise unremarkable Cardiac Markers: - Troponin: 4 (Normal) - BNP: 18 (Normal) Imaging and Other Relevant Results: CT Angiogram Head and Neck: - No evidence of large vessel occlusion - No acute intracranial abnormalities noted Medical Decision Making: Summary Statement: 79-year-old male presenting with resolved symptoms of acute vertigo and left-sided weakness concerning for TIA, with concurrent renal insufficiency. Problem List: 1. Suspected TIA 2. Acute kidney injury Differential Diagnosis: 1. Transient Ischemic Attack 2. Stroke 3. Vestibular neuritis 4. Acute kidney injury 5. Dehydration ED Course: Patient received diagnostic workup including CT angiogram and laboratory studies. Started on aspirin for suspected TIA. IV hydration initiated for renal insufficiency. Symptoms completely resolved during ED stay. Assessment and Plan: 1. Suspected Transient Ischemic Attack - Symptoms have completely resolved - Started on aspirin for secondary prevention - Admit to hospital for neurologic monitoring - Neurology consultation to be obtained 2. Acute Kidney Injury - Creatinine elevated at 1.39 - Initiated IV fluid hydration - Will monitor renal function during admission Billing Information: ICD-10: G45.9 - Transient cerebral ischemic attack, unspecified ICD-10: N17.9 - Acute kidney failure, unspecified Critical Care Note Critical Care Time?: Yes (35 min-critical care time only) Critical care comment: Total critical care time: Approximately 36 minutes Due to a high probability of clinically significant, life threatening deterioration, the patient required my highest level of preparedness to intervene emergently and I personally spent this critical care time directly and personally managing the patient. This critical care time included obtaining a history; examining the patient; pulse oximetry; ordering and review of studies; arranging urgent treatment with development of a management plan; evaluation of patient's response to treatment; frequent reassessment; and, discussions with other providers. This critical care time was performed to assess and manage the high probability of imminent, life-threatening deterioration that could result in multi-organ failure. It was exclusive of separately billable procedures and treating other patients. Stability Stability form required: No Heart Score Heart Score: Heart Score Response (Comments) Value History Slightly Suspicious 0 EKG Normal 0 Age >65 2 Risk Factors 1 or 2 risk factors 1 Troponin Normal limit 0 Total 3 I personally scribed for CHALO LION MD ([email or web address]) on 08/18/24 at 18:41. Electronically submitted by Nika Cobb ([email or web address]). I personally scribed for CHALO LION MD ([email or web address]) on 08/18/24 at 19:15. Electronically submitted by Nika Cobb ([email or web address]). I personally scribed for CHALO LION MD ([email or web address]) on 08/18/24 at 19:29. Electronically submitted by Nika Cobb ([email or web address]). I personally scribed for CHALO LION MD ([email or web address]) on 08/18/24 at 20:45. Electronically submitted by Nika Cobb ([email or web address]). CHALO LION MD August 18, 2024 18:41
--- NOTE | 2024-08-18 18:55 | ECG ---
[facility] Test Date: 2024-08-18 Test Time: 18:54:18 Pat Name: CHRISTAL LIVINGSTON Department: ER Room: [address] [place] [address] Gender: M Signal Processing Engineer: ENRIQUE : 1945 Requested By: CHALO LION Order Number: [id number] Reading MD: Arnold Echavarria Measurements Intervals [place] Rate: 68 P: 41 MO: 170 QRS: -8 QRSD: 93 T: 74 QT: 406 QTc: 432 Interpretive Statements Sinus rhythm Electronically Signed On 08-19-2024 13:14:40 PDT by Arnold Echavarria Please click the below link to view image of tracing.
[2024-08-18 19:00] LABS: Alanine Aminotransferase 21 U/L (7-40); Albumin 4.6 g/dL (3.2-4.8); Alkaline Phosphatase 80 U/L (46-116); Anion Gap 8 (5-15); Aspartate Aminotransferase 18 U/L (13-40); BUN/Creatinine Ratio 10.1 (10.0-20.0); Blood Urea Nitrogen 14 mg/dL (9-23); Calcium 10.3 mg/dL (8.7-10.4); Carbon Dioxide 27 mmol/L (20-31); Glucose 105 mg/dL (74-106); Potassium 3.7 mmol/L (3.5-5.1); Sodium 145 mmol/L (136-145); Total Protein 6.6 g/dL (5.7-8.2)
[2024-08-18 19:01] LABS: Bilirubin, Total 0.5 mg/dL (0.2-1.0)
[2024-08-18 19:07] LABS: Chloride 110 mmol/L (98-107)
[2024-08-18 19:39] LABS: INR 1.03 (0.9-1.15); Prothrombin Time 10.9 sec (9.3-11.8)
[2024-08-18] MEDS: IOHEXOL 350 MG/ML 100ML IJ ONE (20:12)
--- NOTE | 2024-08-18 20:41 | DVH ---
CHEST RADIOGRAPH Indication: weakness Technique: Single frontal view of the chest was obtained Comparison: XY CHEST PORTABLE on DOS: 02/17/23, XY CHEST XRAY 1 VIEW on DOS: 11/20/22 FINDINGS: Lines and Tubes: None Lungs: Elevation right diaphragm Pleura: No effusion. No pneumothorax. Cardiomediastinal contours: Unremarkable Bones: No acute osseous abnormality. IMPRESSION: 1. Stable chest x-ray changed from 02/17/2023.
--- NOTE | 2024-08-18 21:12 | DVH ---
EXAM: CT ANGIO HEAD/NECK HISTORY: left sided weakness, vertigo COMPARISON: None TECHNIQUE: CTA imaging of the neck and head was performed following the uneventful administration of intravenous contrast. Sagittal and coronal reformatted images were obtained from the source data. 3D /MIP post-processing of the source data set was performed and reviewed by the radiologist. Radiation Dose Information: CT Dose: CTDI volume is 33, 28 mGy. Dose-length product is 1621.6 mGy*cm All CT scans at this medical facility are performed using dose modulation techniques as appropriate t o a performed exam including the following: Automated exposure control was utilized; adjustment of th e MA and/or KV according to patient size; and use of iterative reconstruction technique. FINDINGS: CTA Neck: Aortic Arch: Conventional branching. Right brachiocephalic artery: Unremarkable. Right carotid artery: Mild Scattered calcified plaques of the carotid bulb and proximal ICA noted. Right subclavian artery: Unremarkable. Right vertebral artery: Unremarkable. Left carotid artery: Mild scattered calcified plaques of the carotid bulb and proximal ICA noted. Left subclavian artery: Unremarkable. Left vertebral artery: Unremarkable. Other: Multinodular goiter. Multilevel degenerative disc disease of the cervical spine noted. CTA Head: [place] of [place]: The arteries of [place] are unremarkable, without evidence of aneurysm, steno sis or thrombosis. Dural venous: Grossly unremarkable. Other: None. IMPRESSION: 1. No large vessel occlusion or high-grade stenosis in the arteries of the head and neck. No aneurysm is identified.
[2024-08-18] MEDS ORDERED: ONDANSETRON HCL 4 MG/2 ML VIAL IV PRN (22:00)
[2024-08-18] MEDS ORDERED: ACETAMINOPHEN 325 MG TAB PO PRN (22:00)
--- NOTE | 2024-08-18 22:12 | DVHHP2 ---
History of Present Illness Reason for Visit: Dizziness History of Present Illness 79-year-old male presents for evaluation of dizziness. Patient reports developing severe dizziness and losing balance earlier today. He subsequently fell to the ground and felt completely week. He states his symptoms lasted approximately 5 minutes. He states it took him nearly 20 minutes to regain some strength to be able to get back on his feet. Denies headache or blurred vision. No slurred speech. He states the dizziness comes and goes. Past Medical History CAD, dyslipidemia, hypertension, mi, CAD, BPH Past Surgical History PTCA Family History Noncontributory Smoke: No ALCOHOL: none Drugs: None Lives: with Family Review of Systems Review of Systems Review of systems are currently negative otherwise addressed in HPI. Allergies: Coded Allergies: Morphine (Verified Allergy, Unknown, 02/01/19) Exam Vital Signs Vital Signs Date Time Temp Pulse Resp B/P (MAP) Pulse Ox O2 Delivery O2 Flow Rate FiO2 08/18/24 19:29 68 08/18/24 18:52 98.3 17 126/79 (95) 94 98.3 Exam Gen: 79-year-old male in no apparent distress. Skin: Warm, dry, normal color and texture, no rash. HEENT: Normocephalic atraumatic, mucous membranes moist and pink. Neck: Cervical and supraclavicular nodes normal without enlargement, trachea is midline, thyroid gland is normal without masses. Pulmonary: Clear to auscultation and percussion bilaterally. Cardiac: Regular rate and rhythm. No murmur Abdomen: Soft, nontender, nondistended, bowel sounds present all 4 quadrants, no guarding, no rigidity, no organomegaly. Extremities: No cyanosis, clubbing, no edema Neuro: Cranial nerves II through XII grossly intact, normal affect and speech, no focal motor deficits. Labs/Xrays ORDERING PHYSICIAN: CHALO LION MD PROCEDURE(s): CXR1 - CHEST XRAY 1 VIEW REASON: weakness ORDER NUMBER(s): [id number], ACCESSION NUMBER(s): [id number] CHEST RADIOGRAPH Indication: weakness Technique: Single frontal view of the chest was obtained Comparison: XY CHEST PORTABLE on DOS: 02/17/23, XY CHEST XRAY 1 VIEW on DOS: 11/20/22 FINDINGS: Lines and Tubes: None Lungs: Elevation right diaphragm Pleura: No effusion. No pneumothorax. Cardiomediastinal contours: Unremarkable Bones: No acute osseous abnormality. IMPRESSION: 1. Stable chest x-ray changed from 02/17/2023. RING PHYSICIAN: CHALO LION MD PROCEDURE(s): [place] - ANGIO HEAD/Neck REASON: left sided weakness, vertigo ORDER NUMBER(s): [id number], ACCESSION NUMBER(s): [id number] EXAM: CT ANGIO HEAD/NECK HISTORY: left sided weakness, vertigo COMPARISON: None TECHNIQUE: CTA imaging of the neck and head was performed following the uneventful administration of intravenous contrast. Sagittal and coronal reformatted images were obtained from the source data. 3D/MIP post-processing of the source data set was performed and reviewed by the radiologist. Radiation Dose Information: CT Dose: CTDI volume is 33, 28 mGy. Dose-length product is 1621.6 mGy*cm All CT scans at this medical facility are performed using dose modulation techniques as appropriate to a performed exam including the following: Automated exposure control was utilized; adjustment of the MA and/or KV according to patient size; and use of iterative reconstruction technique. FINDINGS: CTA Neck: Aortic Arch: Conventional branching. Right brachiocephalic artery: Unremarkable. Right carotid artery: Mild Scattered calcified plaques of the carotid bulb and proximal ICA noted. Right subclavian artery: Unremarkable. Right vertebral artery: Unremarkable. Left carotid artery: Mild scattered calcified plaques of the carotid bulb and proximal ICA noted. Left subclavian artery: Unremarkable. Left vertebral artery: Unremarkable. Other: Multinodular goiter. Multilevel degenerative disc disease of the cervical spine noted. CTA Head: [place]: The arteries of [place] are unremarkable, without evidence of aneurysm, stenosis or thrombosis. Dural venous: Grossly unremarkable. Other: None. IMPRESSION: 1. No large vessel occlusion or high-grade stenosis in the arteries of the head and neck. No aneurysm is identified. Labs Test 08/18/24 18:57 08/18/24 18:28 Range/Units POC Glucose 98 70-106 mg/dl White Blood Count 8.9 4.4-10.8 10^3/uL Red Blood Count 5.15 4.5-5.90 10^6/uL Hemoglobin 16.2 13.5-17.5 g/dL Hematocrit 47.3 41.0-53.0 % Mean Corpuscular Volume 91.8 80.0-100.0 fL Mean Corpuscular Hemoglobin 31.4 28.0-32.0 pg Mean Corpuscular Hemoglobin Concent 34.2 32.0-36.0 g/dL Red Cell Distribution Width 13.7 11.8-14.3 % Platelet Count 200 140-450 10^3/uL Mean Platelet Volume 8.9 6.9-10.8 fL Neutrophils (%) (Auto) 76.3 37.0-80.0 % Lymphocytes (%) (Auto) 11.7 10.0-50.0 % Monocytes (%) (Auto) 7.9 0.0-12.0 % Eosinophils (%) (Auto) 3.3 0.0-7.0 % Basophils (%) (Auto) 0.8 0.0-2.0 % Neutrophils # (Auto) 6.8 1.6-8.6 10 ^3/uL Lymphocytes # (Auto) 1.0 0.4-5.4 10 ^3/uL Monocytes # (Auto) 0.7 0-1.3 10 ^3/uL Eosinophils # (Auto) 0.3 0-0.8 10 ^3/uL Basophils # (Auto) 0.1 0-0.2 10 ^3/uL Nucleated Red Blood Cells 0.1 % Prothrombin Time 10.9 9.3-11.8 sec Prothrombin Time INR 1.03 0.9-1.15 Activated Partial Thromboplast Time 28.0 24.5-34.5 SEC Sodium Level 145 136-145 mmol/L Potassium Level 3.7 3.5-5.1 mmol/L Chloride Level 110 H 98-107 mmol/L Carbon Dioxide Level 27 20-31 mmol/L Anion Gap 8 5-15 Blood Urea Nitrogen 14 9-23 mg/dL Creatinine 1.39 H 0.700-1.30 mg/dL Glomerular Filtration Rate Calc 52 >90 mL/min BUN/Creatinine Ratio 10.1 10.0-20.0 Serum Glucose 105 74-106 mg/dL Calcium Level 10.3 8.7-10.4 mg/dL Magnesium Level 1.9 1.6-2.6 mg/dL Total Bilirubin 0.5 0.2-1.0 mg/dL Aspartate Amino Transferase (AST) 18 13-40 U/L Alanine Aminotransferase (ALT) 21 7-40 U/L Alkaline Phosphatase 80 46-116 U/L Troponin I High Sensitivity 4 </=54 ng/L B-Type Natriuretic Peptide 17.87 0-100 pg/mL Total Protein 6.6 5.7-8.2 g/dL Albumin 4.6 3.2-4.8 g/dL Assessment/Plan Assessment/Plan Assessment Possible TIA Hypertension Chronic kidney disease High-grade stenosis of the head/neck arteries Admit the patient to med surge to the hospitalist neurology/ Vascular consults Resume home medications MRI of the brain pending Continue treatment per orders. Plan discussed with: Patient My Orders Orders - TALI SALDAÑA Procedure Category Date Status Time Clopidogrel Bisulfate PHA 08/19/24 Verified (Plavix) 10:00 Amlodipine Tablet PHA 08/19/24 Verified (Norvasc Tablet) 10:00 Triamterene/Hctz PHA 08/19/24 Verified (Dyazide 37.5/25mg 10:00 Tamsulosin PHA 08/19/24 Verified Hydrochloride (Flomax) 18:00 Allopurinol Tablet PHA 08/19/24 Verified (Zyloprim Tablet) 10:00 Brain Head Wo Contrast MRI 08/18/24 Verified 21:53 Admit ADMIT 08/18/24 Verified 21:53 Ondansetron Hcl PHA 08/18/24 Verified (Zofran) 22:00 Enoxaparin Sodium PHA 08/19/24 Verified (Lovenox) 10:00 Cardiac DIET 08/19/24 Verified Diet-2gna,Lofat,Lochol Breakfast Echo 2d Mode Cardiac US 08/18/24 Verified DOP 21:53 Carotid Duplx W Color US 08/18/24 Verified DOP 21:53 Condition: Stable ZION 08/18/24 Verified 21:53 Acetaminophen Tablet PHA 08/18/24 Verified (Tylenol Tablet) 22:00 Bedrest With Bathroom ZION 08/18/24 Verified Privileg 21:53 Date of Service: August 18, 2024 Billing Provider: TALI SALDAÑA Common Visit Codes: [id number] INP/OBS CARE (HIGH) TALI SALDAÑA AGACN August 18, 2024 22:12
[2024-08-19] VITALS (7 sets, daily range): BP systolic 131–148; BP diastolic 77–91; PULSE 67–79; RESP 16–20; TEMP 97.5–98.1; O2SAT 92–96
--- NOTE | 2024-08-19 01:04 | DVH ---
CAROTID DOPPLER EXAMINATIONCLINICAL HISTORY: stenosis TECHNIQUE: Real-time high resolution grayscale imaging and color Doppler flow imaging with pulsed du plex sonography of the carotid and vertebral arteries is performed. Velocity criteria are extrapolated from angiographic diameter data as defined by the Society of Radio logists in Ultrasound Consensus Conference (Radiology 2003; 229: 340-346). Comparison: None FINDINGS: No significant grayscale stenosis noted. Doppler waveforms are satisfactory. Antegrade flow in the b ilateral vertebral arteries. Peak systolic velocities (cm/s): Right ICA proximal: 57.3 Right ICA mid: 54.9 Right ICA distal: 70.6 Right systolic ICA/CCA ratio: 0.9 Left ICA proximal: 49.6 Left ICA mid: 54.0 Left ICA distal: 69.4 Left systolic ICA/CCA ratio: 1.5 IMPRESSION: No hemodynamically significant stenoses. Antegrade flow in the bilateral vertebral arteries. HS:Y
[2024-08-19] MEDS: ASPirin 325 MG TAB PO ONE (01:13)
[2024-08-19] MEDS: SODIUM CHLORIDE 0.9% 1,000 ML IV ONE (01:16)
[2024-08-19] MEDS ORDERED: ATOR20TA50 PO (04:01)
[2024-08-19] MEDS ORDERED: CLOP75TA70 PO (04:04)
[2024-08-19] MEDS ORDERED: ALLO300T2 PO (04:04)
[2024-08-19] MEDS ORDERED: MET50T PO (04:06)
[2024-08-19] MEDS ORDERED: POTA80TA OR (04:06)
[2024-08-19] MEDS: ALLOPURINOL 100 MG TAB PO SCH (09:12)
[2024-08-19] MEDS: CLOPIDOGREL BISULFATE 75 MG TAB PO SCH (09:12)
[2024-08-19] MEDS: amLODIPine BESYLATE 5 MG TAB PO SCH (09:13)
--- NOTE | 2024-08-19 09:13 | DVH ---
EXAMINATION: MRI BRAIN HEAD WO CONTRAST INDICATION: possible tia lt arm weakness COMPARISON: None TECHNIQUE: Multiplanar, multisequence magnetic resonance imaging of the brain was performed without t he use of intravenous contrast. FINDINGS: There is no restricted diffusion. There are [id number] chronic small-vessel ischemic changes in the supratentorial white matter. There is a small chronic infarct in the left anterior venegas radiat a. There is a small chronic lacunar infarct in the right centrum semiovale. There are several small f oci of blooming artifact in the left thalamic region which May relate to chronic microhemorrhages. There is no evidence of acute hemorrhage, mass, mass effect or midline shift. There is no hydrocephal us or extra-axial fluid collection. The visualized intracranial vasculature demonstrates appropriate flow-voids. The sagittal midline structures appear unremarkable. The calvarium demonstrates normal m arrow signal. The paranasal sinuses and mastoid air cells are clear. IMPRESSION: 1. There is no acute intracranial process. 2. Chronic ischemic changes as described above. 3. Several small foci of blooming artifact in the left thalamic region May relate to chronic microhem orrhages. HS:Y
[2024-08-19] MEDS: TRIAMTERENE/HCTZ 37.5/25 MG CAP/TAB PO SCH (09:14)
[2024-08-19] MEDS: ENOXAPARIN SOD 40 MG/0.4 ML SYRINGE SC SCH (09:21)
--- NOTE | 2024-08-19 09:28 | DVHINCON2 ---
Date of service: August 19, 2024 Referring Physician Michael Reason for Consultation TIA History of Present Illness Mr. Regalado is a 79 years old right-handed gentleman with a history of hypertension, dyslipidemia, coronary artery disease, heart attack, congestive heart failure, gout, orange agent contact, he came to the [facility] on 08/18/2024 with a chief complaint of dizziness, fall. At this time, he is alert and fully oriented, he provided the following history Around 3:30 on 08/18/2024, after getting off his car, when he was walking towards his apartment, he had acute dizziness/spinning sensation, off balance, and he could not hold himself up, he felt the left side was weak and he fell down to the left side without loss of consciousness, the patient has had no similar experience previously, he denies history of stroke, seizure disorder. CBC, 08/18/2024: Unremarkable BUN/CR, 08/18/2024: 14/1.39 Liver function tests, 08/18/2024: Normal Carotid Doppler, 08/19/2024: No hemodynamically significant stenoses CTA head, neck, 08/18/2024: No large vessel occlusion or high-grade stenosis in the arteries of the head and neck. No aneurysm is identified MRI brain, 08/19/2024: 1. There is no acute intracranial process. 2. Chronic ischemic changes as described above. 3. Several small foci of blooming artifact in the left thalamic region May relate to chronic microhemorrhages. Past Medical History Hypertension, dyslipidemia, coronary artery disease, heart attack, congestive heart failure, gout, orange agent contact Past Surgical History PTCA Family History: Patient reports no known family medical history. Family History Heart disease Social History He is not a tobacco smoker, he denies a history of alcohol or recreational substance abuse Allergies: Coded Allergies: Morphine (Verified Allergy, Unknown, 02/01/19) Home Meds Active Scripts Diclofenac Potassium (Diclofenac Potassium) 50 Mg Tab, 1 TAB PO TIDP for 10 Days, #30 TAB Prov:DESTINEY CLEMONS MD 11/20/22 Diclofenac Sodium (Topical) (Voltaren Arthritis Pain) 1 % Gel, 1 % EX TID for 10 Days, #100 GEL Prov:DESTINEY CLEMONS MD 11/20/22 Reported Medications Potassium Gluconate (POTASSIUM GLUCONATE) 80 Mg Tab, 80 MG OR, TAB 5/15/25 Metoprolol Tartrate (LOPRESSOR TABLET) 50 Mg Tb, 0.5 TAB PO BID, #60 TAB 5 Refills 08/19/24 Clopidogrel Bisulfate (CLOPIDOGREL) 75 Mg Tab, 1 TAB PO DAILY, #90 TAB 1 Refill 08/19/24 Allopurinol (Allopurinol) 300 Mg Tab, 100 MG PO DAILY, TAB 08/19/24 Atorvastatin Calcium (ATORVASTATIN CALCIUM) 20 Mg Tab, 1 TAB PO DAILY, #30 TAB 5 Refills 08/19/24 Primidone (MYSOLINE TABLET) 50 Mg Tb, 50 MG GT for TREMORS, TAB 10/24/22 Modafinil (MODAFINIL) 100 Mg Tab, 100 MG PO for SLEEP DISORDER, TAB 10/24/22 Tamsulosin Hcl (Tamsulosin Hcl) 0.4 Mg Cap, 0.4 MG PO QPM 10/24/22 Amlodipine Besylate (Amlodipine Besylate) 10 Mg Tab, 1 TAB PO DAILY for HTN 10/24/22 Hydrocodone-Acetaminophen (Fillmore 10-325 mg) 1 Tab Tab, 0.5 TAB PO BIDPRN, TAB 07/01/16 Current Medications Current Medications Medications (Trade) Dose Ordered Sig/Deng Route PRN Reason Start Time Stop Time Status Last Admin Clopidogrel Bisulfate (Plavix) 75 mg DAILY PO 08/19/24 10:00 Amlodipine Besylate (Norvasc Tablet) 5 mg DAILY PO 08/19/24 10:00 Triamterene/HCTZ (Dyazide 37.5/ 25MG Capsule) 1 cap DAILY PO 08/19/24 10:00 Tamsulosin HCl (Flomax) 0.4 mg QPM PO 08/19/24 18:00 Allopurinol (Zyloprim Tablet) 100 mg DAILY PO 08/19/24 10:00 Ondansetron HCl (Zofran) 4 mg Q4HP PRN IV NAUSEA / VOMITING 08/18/24 22:00 Enoxaparin Sodium (Lovenox) 40 mg DAILY SC 08/19/24 10:00 Acetaminophen (Tylenol Tablet) 650 mg Q6HP PRN PO PAIN SCALE 1-3 OR TEMP>100.4 08/18/24 22:00 Review of Systems As above, the other systems are negative Vital Signs Vital Signs Date Time Temp Pulse Resp B/P (MAP) Pulse Ox O2 Delivery O2 Flow Rate FiO2 08/19/24 08:26 97.5 79 16 134/83 (100) 94 97.5 08/19/24 02:20 Room Air* 0 21 Physical Exam GENERAL EXAM: General: the patient is well developed and nourished. No acute distress. HEENT: Normocephalic, neck is supple, no carotid bruits. No mass. RESPIRATORY: Normal respiratory effort with symmetrical lung expansion. Lungs clear to auscultation. CARDIOVASCULAR: Regular rate and rhythm with no murmurs. S1, S2. ABDOMEN: Soft, nontender, normal bowel sound MUSCULOSKELETAL EXAM: Bruise in the left knee NEUROLOGICAL: MENTAL STATUS: Awake and alert. Oriented to person, place, time and general circumstances. Able to give personal history SPEECH, LANGUAGE, HIGHER CORTICAL FUNCTION: no aphasia or dysathria. CRANIAL NERVES: #2: Intact visual traylor to confrontation. The optic discs were sharp #3,4,6: Pupils are equal, round and reactive. EOMs full and conjugate. No nystagmus. #5: Facial sensation intact in all three divisions bilaterally. Mandibular strength intact. #7: Facial muscles symmetrical and strength intact. #8: Hearing grossly normal to voice. #9,10: Uvula and soft palate rise in the midline. Swallow and voice are normal. #11: Trapezius and sternomastoid strength intact bilaterally. #12: Tongue midline. No fasciculations or atrophy. SENSATION: Sensation to touch and pinprick is normal. MOTOR: Normal tone in the upper and lower extremity. Normal muscle bulk. No fasciculations. No abnormal movements or posturing. Muscle strength of the major groups in the upper extremities is 5/5. Muscle strength of the major groups in the lower extremities is 5/5. REFLEXES: Deep tendon reflexes are symmetrical. No pathological reflexes. CEREBELLAR/COORDINATION: Finger to nose and heel to pederson are normal bilaterally. GAIT/STATION: deferred. Labs/Diagnostic Data Labs Test 08/19/24 04:48 08/18/24 18:57 08/18/24 18:28 Range/Units POC Glucose 98 70-106 mg/dl White Blood Count 8.9 4.4-10.8 10^3/uL Red Blood Count 5.15 4.5-5.90 10^6/uL Hemoglobin 16.2 13.5-17.5 g/dL Hematocrit 47.3 41.0-53.0 % Mean Corpuscular Volume 91.8 80.0-100.0 fL Mean Corpuscular Hemoglobin 31.4 28.0-32.0 pg Mean Corpuscular Hemoglobin Concent 34.2 32.0-36.0 g/dL Red Cell Distribution Width 13.7 11.8-14.3 % Platelet Count 200 140-450 10^3/uL Mean Platelet Volume 8.9 6.9-10.8 fL Neutrophils (%) (Auto) 76.3 37.0-80.0 % Lymphocytes (%) (Auto) 11.7 10.0-50.0 % Monocytes (%) (Auto) 7.9 0.0-12.0 % Eosinophils (%) (Auto) 3.3 0.0-7.0 % Basophils (%) (Auto) 0.8 0.0-2.0 % Neutrophils # (Auto) 6.8 1.6-8.6 10 ^3/uL Lymphocytes # (Auto) 1.0 0.4-5.4 10 ^3/uL Monocytes # (Auto) 0.7 0-1.3 10 ^3/uL Eosinophils # (Auto) 0.3 0-0.8 10 ^3/uL Basophils # (Auto) 0.1 0-0.2 10 ^3/uL Nucleated Red Blood Cells 0.1 % Prothrombin Time 10.9 9.3-11.8 sec Prothrombin Time INR 1.03 0.9-1.15 Activated Partial Thromboplast Time 28.0 24.5-34.5 SEC Sodium Level 145 136-145 mmol/L Potassium Level 3.7 3.5-5.1 mmol/L Chloride Level 110 H 98-107 mmol/L Carbon Dioxide Level 27 20-31 mmol/L Anion Gap 8 5-15 Blood Urea Nitrogen 14 9-23 mg/dL Creatinine 1.39 H 0.700-1.30 mg/dL Glomerular Filtration Rate Calc 52 >90 mL/min BUN/Creatinine Ratio 10.1 10.0-20.0 Serum Glucose 105 74-106 mg/dL Calcium Level 10.3 8.7-10.4 mg/dL Magnesium Level 1.9 1.6-2.6 mg/dL Total Bilirubin 0.5 0.2-1.0 mg/dL Aspartate Amino Transferase (AST) 18 13-40 U/L Alanine Aminotransferase (ALT) 21 7-40 U/L Alkaline Phosphatase 80 46-116 U/L Troponin I High Sensitivity 4 </=54 ng/L B-Type Natriuretic Peptide 17.87 0-100 pg/mL Total Protein 6.6 5.7-8.2 g/dL Albumin 4.6 3.2-4.8 g/dL Assessment Dizziness, passing out, unremarkable MRI, etiology remained unclear ? TIA ? Presyncope event ? Partial seizure Fall Plan/Recommendation Monitoring Supportive treatment Telemetry EEG DVT prophylaxis/Lovenox More recommendation per clinical course This medical document was created using an electronic medical record system with [employer] computerized dictation system. Although this document has been carefully reviewed, there may still be some phonetic and typographical errors. These areas are purely typographical due to imperfections of the software programs, and do not reflect any compromise in the patient's medical care. Plan discussed with: Patient, Other NORMA LAM MD August 19, 2024 09:27
--- NOTE | 2024-08-19 16:01 | DVHPN2 ---
Subjective Patient continues to report having left arm Reviewed: Care Plan, H&P, Labs, Medications Changes from previous H/P or p: No Changes General: Per HPI Objective Vitals Vital Signs Date Time Temp Pulse Resp B/P (MAP) Pulse Ox O2 Delivery O2 Flow Rate FiO2 08/19/24 09:14 134/83 08/19/24 08:26 97.5 79 16 94 97.5 08/19/24 02:20 Room Air* 0 21 General Appearance: Alert, Oriented X3 HEENT: Atraumatic, PERRLA Cardiovascular: Normal S1, Normal S2, Other (Paroxysmal atrial fibrillation) Abdomen: Normal bowel sounds, Soft, No tenderness Musculoskeletal: Normal sensory function, Normal motor function Skin: Dry, Intact Psych/Mental Status: Mental status NL, Mood NL Medications Current Medications Medications Dose Ordered Sig/Deng Route Start Time Stop Time Status Last Admin Dose Admin Clopidogrel Bisulfate 75 mg DAILY PO 08/19/24 10:00 08/19/24 09:12 75 MG Amlodipine Besylate 5 mg DAILY PO 08/19/24 10:00 08/19/24 09:13 5 MG Triamterene/HCTZ 1 cap DAILY PO 08/19/24 10:00 08/19/24 09:14 1 CAP Tamsulosin HCl 0.4 mg QPM PO 08/19/24 18:00 Allopurinol 100 mg DAILY PO 08/19/24 10:00 08/19/24 09:12 100 MG Ondansetron HCl 4 mg Q4HP PRN IV 08/18/24 22:00 Enoxaparin Sodium 40 mg DAILY SC 08/19/24 10:00 Acetaminophen 650 mg Q6HP PRN PO 08/18/24 22:00 Oxybutynin Chloride 5 mg Q8HR PO 08/19/24 22:00 UNV Laboratory Results Laboratory Tests 08/18/24 18:28 Chemistry Test 08/18/24 18:28 Albumin 4.6 g/dL (3.2-4.8) Calcium Level 10.3 mg/dL (8.7-10.4) Magnesium Level 1.9 mg/dL (1.6-2.6) Total Protein 6.6 g/dL (5.7-8.2) Coagulation Test 08/18/24 18:28 Prothrombin Time 10.9 sec (9.3-11.8) Prothrombin Time INR 1.03 (0.9-1.15) Activated Partial Thromboplast Time 28.0 SEC (24.5-34.5) Cardiac Markers Test 08/18/24 18:28 B-Type Natriuretic Peptide 17.87 pg/mL (0-100) LFT Test 08/18/24 18:28 Alanine Aminotransferase (ALT) 21 U/L (7-40) Alkaline Phosphatase 80 U/L (46-116) Aspartate Amino Transferase (AST) 18 U/L (13-40) Total Bilirubin 0.5 mg/dL (0.2-1.0) Labs and/or images reviewed: Labs reviewed by me, Image(s) reviewed by me Assessment/Plan Assessment/Plan Impression: -syncope -left arm pain, ACS -history of CAD with previous stent placement -acute on chronic systolic heart failure -paroxysmal atrial fibrillation with noted unifocal PVCs -obesity -primary hypertension -dyslipidemia Plan: -repeat EKG -echocardiogram -continue antiplatelet therapy -cardiology consultation -transferred to telemetry unit -restart oxybutynin Total time spent with patient discussing and formulating plan of care: 35 minutes. This medical document was created using an electronic medical record system with [employer] dictation system. Although this document has been carefully reviewed, there may still be some phonetic and typographical errors. These areas are purely typographical due to imperfections of the software programs, and do not reflect any compromise in the patient's medical care. Plan discussed with: Patient, Other (RN) My Orders Orders - DESHAUN MERINO NP Procedure Category Date Status Time Oxybutynin Chloride PHA 08/19/24 Logged Tablet (Ditropan Tab 22:00 Date of Service: August 19, 2024 Billing Provider: DESHAUN MERINO NP Common Visit Codes: [id number] INP/OBS CARE(HIGH) DESHAUN MERINO NP August 19, 2024 16:00
[2024-08-19] MEDS: TAMSULOSIN HYDROCHLORIDE 0.4 MG CAP PO SCH (18:30)
[2024-08-19] MEDS: OXYBUTYNIN CHL 5 MG TAB PO SCH (22:27)
[2024-08-20] VITALS (8 sets, daily range): BP systolic 134–144; BP diastolic 85–94; PULSE 72–85; RESP 17–20; TEMP 97.7–98.5; O2SAT 90–94
[2024-08-20 10:24] LABS: Hepatitis B Surface Antigen Negative (Negative); Hepatitis C Antibody Negative (Negative)
[2024-08-20 11:43] LABS: Anion Gap 10 (5-15); Carbon Dioxide 27 mmol/L (20-31); Chloride 105 mmol/L (98-107); Sodium 142 mmol/L (136-145)
[2024-08-20 11:45] LABS: Calcium 10.9 mg/dL (8.7-10.4); Potassium 3.3 mmol/L (3.5-5.1)
[2024-08-20 11:49] LABS: BUN/Creatinine Ratio 9.2 (10.0-20.0); Blood Urea Nitrogen 12 mg/dL (9-23); Glucose 104 mg/dL (74-106); Magnesium 1.8 mg/dL (1.6-2.6)
[2024-08-20] MEDS: MAGNESIUM OXIDE 400 MG TAB PO ONE (13:15)
[2024-08-20] MEDS: POTASSIUM EFFERVESENT TAB 25 MEQ PO ONE (13:15)
--- NOTE | 2024-08-20 13:24 | DVHCONRES ---
Date Seen: August 20, 2024 Resident Creating Document: BRI NICOLE RESIDENT Referring Physician Tao Cook NP History of Present Illness 79-year-old male with past medical history of coronary artery disease status post PCI, dyslipidemia, hypertension, BPH, agent orange exposure 1967 presented with complaints of dizziness. Patient was walking to the car when he he collapsed to the ground but never lost consciousness. Patient has been having dizziness 15 minutes for the event but did not have any other symptoms like nausea vomiting before the event. According to the patient, he was lying on the floor for 10 minutes after which she gained strength and was able to stand up and it took 30 minutes with the patient to get complete strength back. He denied any chest pain, shortness of breath, palpitations before during or after the event. Patient decided to come to the ER due to the event of dizziness. He mentioned that he was possibly diagnosed with CHF and is able to do home activities but not all the time correlating to NHYA Class II. Cardiology was consulted for questionable arrhythmia and questionable ACS considering patient's previous history of coronary artery disease. Patient was seen and examined at bedside. Patient is mentioning of left arm pain more on the wrist and radiating to the axilla, currently not mentioning of any other symptoms, is on room air. Past medical history Coronary artery disease status post PCI dyslipidemia, hypertension, BPH, agent orange exposure 1968 Past surgical history No recent surgery Social history Denied any smoking, alcohol, marijuana or any other drug intake family history Denied significant family history Family History: Patient reports no known family medical history. Allergies: Coded Allergies: Morphine (Verified Allergy, Unknown, 02/01/19) Home Meds Active Scripts Diclofenac Potassium (Diclofenac Potassium) 50 Mg Tab, 1 TAB PO TIDP for 10 Days, #30 TAB Prov:DESTINEY CLEMONS MD 11/20/22 Diclofenac Sodium (Topical) (Voltaren Arthritis Pain) 1 % Gel, 1 % EX TID for 10 Days, #100 GEL Prov:DESTINEY CLEMONS MD 11/20/22 Reported Medications Potassium Gluconate (POTASSIUM GLUCONATE) 80 Mg Tab, 80 MG OR, TAB 08/19/24 Metoprolol Tartrate (LOPRESSOR TABLET) 50 Mg Tb, 0.5 TAB PO BID, #60 TAB 5 Refills 08/19/24 Clopidogrel Bisulfate (CLOPIDOGREL) 75 Mg Tab, 1 TAB PO DAILY, #90 TAB 1 Refill 08/19/24 Allopurinol (Allopurinol) 300 Mg Tab, 100 MG PO DAILY, TAB 08/19/24 Atorvastatin Calcium (ATORVASTATIN CALCIUM) 20 Mg Tab, 1 TAB PO DAILY, #30 TAB 5 Refills 08/19/24 Primidone (MYSOLINE TABLET) 50 Mg Tb, 50 MG GT for TREMORS, TAB 10/24/22 Modafinil (MODAFINIL) 100 Mg Tab, 100 MG PO for SLEEP DISORDER, TAB 10/24/22 Tamsulosin Hcl (Tamsulosin Hcl) 0.4 Mg Cap, 0.4 MG PO QPM 10/24/22 Amlodipine Besylate (Amlodipine Besylate) 10 Mg Tab, 1 TAB PO DAILY for HTN 10/24/22 Hydrocodone-Acetaminophen ([place] 10-325 mg) 1 Tab Tab, 0.5 TAB PO BIDPRN, TAB 07/01/16 Current Medications Current Medications Medications (Trade) Dose Ordered Sig/Deng Route PRN Reason Start Time Stop Time Status Last Admin Tamsulosin HCl (Flomax) 0.4 mg QPM PO 08/19/24 18:00 08/19/24 18:30 Oxybutynin Chloride (Ditropan Tablet) 5 mg Q8HR PO 08/19/24 22:00 08/20/24 06:45 Review of Systems As per HPI Vital Signs Vital Signs Date Time Temp Pulse Resp B/P (MAP) Pulse Ox O2 Delivery O2 Flow Rate FiO2 08/20/24 10:23 144/87 08/20/24 09:00 98.4 73 20 92 98.4 08/20/24 08:00 Room Air* 0 21 Physical Exam Examination General Appearance: Alert, Oriented X3, Cooperative, No acute distress HEENT: EOMI Respiratory: Clear to auscultation, Normal air movement Cardiovascular: Regular rate, Normal S1, Normal S2 Abdominal: Normal bowel sounds Extremities: No cyanosis, No edema, Normal pulses, No tenderness/swelling Skin: No rashes, No breakdown Neuro: Normal gait, Normal speech, Strength at 5/5 X4 ext, Normal tone, Sensation intact, Cranial nerves 3-12 NL, Reflexes 2+ Psych/Mental Status: Mental status NL, Mood NL Labs/Diagnostic Data Labs Test 08/20/24 11:14 08/19/24 04:48 08/18/24 18:57 08/18/24 18:28 Range/Units Sodium Level 142 136-145 mmol/L Potassium Level 3.3 L 3.5-5.1 mmol/L Chloride Level 105 98-107 mmol/L Carbon Dioxide Level 27 20-31 mmol/L Anion Gap 10 5-15 Blood Urea Nitrogen 12 9-23 mg/dL Creatinine 1.31 H 0.700-1.30 mg/dL Glomerular Filtration Rate Calc 56 >90 mL/min BUN/Creatinine Ratio 9.2 L 10.0-20.0 Serum Glucose 104 74-106 mg/dL Calcium Level 10.9 H 8.7-10.4 mg/dL Magnesium Level 1.8 1.6-2.6 mg/dL Troponin I High Sensitivity 4 </=54 ng/L Hepatitis B Surface Antigen Negative Negative Hepatitis C Antibody Negative Negative POC Glucose 98 70-106 mg/dl White Blood Count 8.9 4.4-10.8 10^3/uL Red Blood Count 5.15 4.5-5.90 10^6/uL Hemoglobin 16.2 13.5-17.5 g/dL Hematocrit 47.3 41.0-53.0 % Mean Corpuscular Volume 91.8 80.0-100.0 fL Mean Corpuscular Hemoglobin 31.4 28.0-32.0 pg Mean Corpuscular Hemoglobin Concent 34.2 32.0-36.0 g/dL Red Cell Distribution Width 13.7 11.8-14.3 % Platelet Count 200 140-450 10^3/uL Mean Platelet Volume 8.9 6.9-10.8 fL Neutrophils (%) (Auto) 76.3 37.0-80.0 % Lymphocytes (%) (Auto) 11.7 10.0-50.0 % Monocytes (%) (Auto) 7.9 0.0-12.0 % Eosinophils (%) (Auto) 3.3 0.0-7.0 % Basophils (%) (Auto) 0.8 0.0-2.0 % Neutrophils # (Auto) 6.8 1.6-8.6 10 ^3/uL Lymphocytes # (Auto) 1.0 0.4-5.4 10 ^3/uL Monocytes # (Auto) 0.7 0-1.3 10 ^3/uL Eosinophils # (Auto) 0.3 0-0.8 10 ^3/uL Basophils # (Auto) 0.1 0-0.2 10 ^3/uL Nucleated Red Blood Cells 0.1 % Prothrombin Time 10.9 9.3-11.8 sec Prothrombin Time INR 1.03 0.9-1.15 Activated Partial Thromboplast Time 28.0 24.5-34.5 SEC Total Bilirubin 0.5 0.2-1.0 mg/dL Aspartate Amino Transferase (AST) 18 13-40 U/L Alanine Aminotransferase (ALT) 21 7-40 U/L Alkaline Phosphatase 80 46-116 U/L B-Type Natriuretic Peptide 17.87 0-100 pg/mL Total Protein 6.6 5.7-8.2 g/dL Albumin 4.6 3.2-4.8 g/dL Plan/Recommendation Assessment/plan #left arm pain, rule out ACS -EKG showed no significant ST changes -Trops WNL #CAD with previous stent placement -currently on atorvastatin, Plavix, metoprolol -had PCI done in 2022 :One-vessel coronary artery disease (LCx), status post drug-eluting stent deployment in LCx #presyncope #?TIA -Carotid artery doppler reveals No hemodynamically significant stenoses. Antegrade flow in the bilateral vertebral arteries. -CTA head and neck WNL MRI head reveals IMPRESSION: 1. There is no acute intracranial process. 2. Chronic ischemic changes as described above. 3. Several small foci of blooming artifact in the left thalamic region May relate to chronic microhemorrhages. 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 -awaiting Echo results Case discussion with Dr Echavarria. Plan discussed with: Patient, Other BRI NICOLE RESIDENT August 20, 2024 13:24
--- NOTE | 2024-08-20 13:32 | DVHPN2 ---
Subjective Patient continues to report having left arm Reviewed: Care Plan, H&P, Labs, Medications Changes from previous H/P or p: No Changes General: Per HPI Objective Vitals Vital Signs Date Time Temp Pulse Resp B/P (MAP) Pulse Ox O2 Delivery O2 Flow Rate FiO2 08/20/24 10:23 144/87 08/20/24 09:00 98.4 73 20 92 98.4 08/20/24 08:00 Room Air* 0 21 Intake/Output Intake and Output 08/20/24 06:59 Intake Total 325 ml Balance 325 ml Intake Oral 325 ml General Appearance: Alert, Oriented X3 HEENT: Atraumatic, PERRLA Cardiovascular: Normal S1, Normal S2, Other (Paroxysmal atrial fibrillation) Abdomen: Normal bowel sounds, Soft, No tenderness Musculoskeletal: Normal sensory function, Normal motor function Skin: Dry, Intact Psych/Mental Status: Mental status NL, Mood NL Medications Current Medications Medications Dose Ordered Sig/Deng Route Start Time Stop Time Status Last Admin Dose Admin Clopidogrel Bisulfate 75 mg DAILY PO 08/19/24 10:00 08/20/24 10:20 75 MG Amlodipine Besylate 5 mg DAILY PO 08/19/24 10:00 08/20/24 10:22 5 MG Triamterene/HCTZ 1 cap DAILY PO 08/19/24 10:00 08/20/24 10:23 1 CAP Tamsulosin HCl 0.4 mg QPM PO 08/19/24 18:00 08/19/24 18:30 0.4 MG Allopurinol 100 mg DAILY PO 08/19/24 10:00 08/20/24 10:22 100 MG Ondansetron HCl 4 mg Q4HP PRN IV 08/18/24 22:00 Enoxaparin Sodium 40 mg DAILY SC 08/19/24 10:00 08/20/24 10:21 40 MG Acetaminophen 650 mg Q6HP PRN PO 08/18/24 22:00 Oxybutynin Chloride 5 mg Q8HR PO 08/19/24 22:00 08/20/24 06:45 5 MG Laboratory Results Laboratory Tests 08/18/24 18:28 08/20/24 11:14 Chemistry Test 08/20/24 11:14 Calcium Level 10.9 mg/dL (8.7-10.4) H Magnesium Level 1.8 mg/dL (1.6-2.6) Labs and/or images reviewed: Labs reviewed by me, Image(s) reviewed by me Assessment/Plan Assessment/Plan Impression: -syncope -left arm pain, ACS -history of CAD with previous stent placement -acute on chronic systolic heart failure -paroxysmal atrial fibrillation with noted unifocal PVCs -obesity -primary hypertension -dyslipidemia Plan: Events: Patient continues to have left arm pain. -cardiology consultation currently pending. Continues to be in sinus rhythm with PVCs -echocardiogram pending -continue antiplatelet therapy -CT scan of cervical spine to rule out stenosis -repeat EKG -pain management with Percocet Total time spent with patient discussing and formulating plan of care: 35 minutes. This medical document was created using an electronic medical record system with [employer] dictation system. Although this document has been carefully reviewed, there may still be some phonetic and typographical errors. These areas are purely typographical due to imperfections of the software programs, and do not reflect any compromise in the patient's medical care. Plan discussed with: Patient, Other (RN) My Orders Orders - DESHAUN MERINO NP Procedure Category Date Status Time Oxybutynin Chloride PHA 08/19/24 In Process Tablet (Ditropan Tab 22:00 * Cardiology Consult CONS 08/19/24 Transmitted 15:59 Date of Service: August 20, 2024 Billing Provider: DESHAUN MERINO NP Common Visit Codes: [id number] INP/OBS CARE(HIGH) DESHAUN MERINO NP August 20, 2024 13:32
--- NOTE | 2024-08-20 15:31 | DVH ---
Indication: Cervical stenosis causing left arm pain Technique: CT axial images of the cervical spine are obtained without contrast. Coronal and sagittal reformats were obtained. Radiation Dose Information: CTDI volume is 27.18 mGy. Dose-length product is 657.37 mGy*cm Comparison: None FINDINGS: The cervical vertebral body heights are maintained. Cervical alignment is maintained. There is sever e multilevel disc space narrowing. No prevertebral edema. Facet articulations moderate to severe face t hypertrophic changes. . The atlantooccipital, atlantoaxial articulations are intact. Severe left neural foraminal stenosis at C2-3. Severe bilateral neural foraminal stenosis at C3-4. Se don bilateral neural foraminal stenosis at C4-5. Severe bilateral neural foraminal stenosis at C5-6. Severe bilateral neural foraminal stenosis at C6-7. Moderate left and moderate to severe right neura l foraminal stenosis C7-T1. IMPRESSION: 1. Severe cervical degenerative disc disease.
[2024-08-20] MEDS: OXYCODONE W/ ACETAMINOPHEN 5/325MG TABLET PO PRN (18:30)
--- NOTE | 2024-08-20 20:48 | DVHPN2 ---
Progress Note - Dictate Date Seen: August 20, 2024 Medical Necessity Reason Pt with a Central, PICC or Fol: No Subjective Mr. Regalado is a 79 years old right-handed gentleman with a history of hypertension, dyslipidemia, coronary artery disease, heart attack, congestive heart failure, gout, orange agent contact, he came to the [facility] on 08/18/2024 with a chief complaint of dizziness, fall. I have seen and examined the patient, I have talked to his nurse, he is awake, oriented x3, but it is not very good historian He tells me has more problem needs to discuss with me, he has intermittent brief intense pain in the left hand for about one year, the patient's lasts for sec of time, it happens every 20 minutes. He also have pain in the left armpit, reading to the medial aspect of the left upper extremity On physical examination, there is no tenderness to palpation in the cervical spine CBC, 08/18/2024: Unremarkable BUN/CR, 08/18/2024: 14/1.39 Liver function tests, 08/18/2024: Normal Carotid Doppler, 08/19/2024: No hemodynamically significant stenoses CT C-spine, 08/20/2024: Severe cervical degenerative disc disease. CTA head, neck, 08/18/2024: No large vessel occlusion or high-grade stenosis in the arteries of the head and neck. No aneurysm is identified MRI brain, 08/19/2024: 1. There is no acute intracranial process. 2. Chronic ischemic changes as described above. 3. Several small foci of blooming artifact in the left thalamic region May relate to chronic microhemorrhages. vital signs Vital Sign Date Time Temp Pulse Resp B/P (MAP) Pulse Ox O2 Delivery O2 Flow Rate FiO2 08/20/24 16:53 98.5 85 18 143/94 (110) 90 98.5 08/20/24 08:00 Room Air* 0 21 Total Intake and Output 08/19/24 08/19/24 08/20/24 14:59 22:59 06:59 Intake Total 0 ml 325 ml Balance 0 ml 325 ml medications Current Medications Medications Dose Ordered Sig/Deng Route Start Time Stop Time Status Last Admin Dose Admin Clopidogrel Bisulfate 75 mg DAILY PO 08/19/24 10:00 08/20/24 10:20 75 MG Amlodipine Besylate 5 mg DAILY PO 08/19/24 10:00 08/20/24 10:22 5 MG Triamterene/HCTZ 1 cap DAILY PO 08/19/24 10:00 08/20/24 10:23 1 CAP Tamsulosin HCl 0.4 mg QPM PO 08/19/24 18:00 08/20/24 18:30 0.4 MG Allopurinol 100 mg DAILY PO 08/19/24 10:00 08/20/24 10:22 100 MG Ondansetron HCl 4 mg Q4HP PRN IV 08/18/24 22:00 Enoxaparin Sodium 40 mg DAILY SC 08/19/24 10:00 08/20/24 10:21 40 MG Acetaminophen 650 mg Q6HP PRN PO 08/18/24 22:00 Oxybutynin Chloride 5 mg Q8HR PO 08/19/24 22:00 08/20/24 14:00 5 MG Oxycodone/ Acetaminophen 1 tab Q4HP PRN PO 08/20/24 13:30 08/20/24 18:30 1 TAB objective General: the patient is well developed and nourished. No acute distress. MENTAL STATUS: Awake and alert. Oriented to person, place, time and general circumstances. Able to give personal history No tenderness to palpation in the cervical spine SPEECH, LANGUAGE, HIGHER CORTICAL FUNCTION: no aphasia or dysathria. CRANIAL NERVES: Pupils are equal, round and reactive. EOMs full and conjugate. No nystagmus. Facial sensation intact in all three divisions bilaterally. Mandibular strength intact. Facial muscles symmetrical and strength intact. SENSATION: Sensation to touch and pinprick is normal. MOTOR: Normal tone in the upper and lower extremity. Normal muscle bulk. No fasciculations. No abnormal movements or posturing. Muscle strength of the major groups in the extremities is 5/5. REFLEXES: Deep tendon reflexes are symmetrical. No pathological reflexes. CEREBELLAR/COORDINATION: Finger to nose and heel to pederson are normal bilaterally. GAIT/STATION: deferred. laboratory and microbiology Laboratory Tests 08/20/24 11:14 08/18/24 18:28 Test 08/20/24 11:14 Range/Units Serum Glucose 104 74-106 mg/dL Problem List Dizziness, passing out, unremarkable MRI, etiology remained unclear ? TIA ? Presyncope event ? Partial seizure Fall Neuralgia in the left upper extremity Assessment/Plan Monitoring Supportive treatment Telemetry EEG A trial of gabapentin 100 mg t.i.d. and escalate care for the left upper extremity pain DVT prophylaxis/Lovenox More recommendation per clinical course This medical document was created using an electronic medical record system with [employer] dictation system. Although this document has been carefully reviewed, there may still be some phonetic and typographical errors. These areas are purely typographical due to imperfections of the software programs, and do not reflect any compromise in the patient's medical care. Prognosis poor Plan discussed with: Patient, Other Total Time (mins): 35 NORMA LAM MD August 20, 2024 20:48
--- NOTE | 2024-08-20 21:57 | DVHEEG2 ---
Neurology EEG Procedural Note Procedural Note EXAM DATE: 08/20/2024 REFERRING DOCTOR: Dr. Lam TECHNIQUE: Eighteen channels of EEG, 2 channels of EOG, and 1 channel of EKG were recorded using the International 10/20 system. CLINICAL DATA: The patient was referred for an EEG evaluation for the evidence of seizure disorder. MEDICATIONS: See the chart BACKGROUND ACTIVITY: While the patient was awake, the background activity consisted of well regulated 11-12 Hz rhythmic waveforms, symmetrically distributed over both posterior quadrants and was reactive to eye opening. ACTIVATION: Hyperventilation: Not done Photic Stimulation: Not done Sleep: Noticed IMPRESSION: This is a normal EEG. No focal, lateralized, or epileptiform features are noted. If clinically indicated to rule out a seizure disorder, recommend repeat EEG with sleep deprivation. The EKG channel showed an irregular heart rate of 78 per minute The CPT code of the study is 9519. NORMA LAM MD August 20, 2024 21:57
[2024-08-20] MEDS: GABAPENTIN 100 MG CAP PO SCH (22:15)
--- NOTE | 2024-08-20 22:24 | DVHSR ---
APPROVED REPORT EXAM: Two-dimensional and M-mode echocardiogram with Doppler and color Doppler. Blood Pressure: 134/86 mmHg INDICATION EF RISK FACTORS Height: 5'11", Weight: 217 DIMENSIONS LVDd4.1 (3.8-5.7cm)LA (2D)4.1 (1.9-4.0cm)Aortic Root3.5 (2.0-3.7cm) LVDs2.3 (2.5-4.0cm)LA (MM) (1.9-4.0cm)Aortic Cusp Exc1.9 (1.5-2.0cm) EF (%) 74.0 (55-70%)Rt. Atrium (1.9-4.0cm)Asc. Aorta3.9 cm IVSd1.4 (0.7-1.1cm)RV (D) (1.8-2.4cm) PWd1.0 (0.7-1.1cm) Mitral Valve MitralMitral Stenosis E wave0.45m/sMV Mean GR.mmHg A wave0.80m/sMV Peak GR.mmHg E/A ratio0.62D MVAcm2 DECEL [id number] 1/2 Timems Aortic Valve Aortic ValveAortic Stenosis V10.91m/Taty Mean GR.4mmHg V21.25m/Taty Peak GR.6mmHg LVOT Diameter2.4 (1.8-2.4cm)Doppler AVA3.29cm2 Pulmonic Valve V20.85m/s Tricuspid Valve TR Velocity2.16m/s [id number] Other Information Quality : Technically LimitedRhythm : Technically limited study due to patient position. Conclusion Sinus rhythm. Left atrial enlargement with concentric LVH. Mild dilation of the sinuses of Valsalva. Mild aortic sclerosis. Mild mitral annular calcification. Left ventricular function is preserved at 60% with normal RV function. Doppler reveals No pericardial effusion masses or vegetations.
[2024-08-21] VITALS (9 sets, daily range): BP systolic 119–140; BP diastolic 82–86; PULSE 69–87; RESP 16–20; TEMP 97.7–98.3; O2SAT 90–97
--- NOTE | 2024-08-21 12:07 | DVHPN2 ---
Reviewed: Care Plan, H&P, Labs, Medications Changes from previous H/P or p: No Changes General: Per HPI Objective Vitals Vital Signs Date Time Temp Pulse Resp B/P (MAP) Pulse Ox O2 Delivery O2 Flow Rate FiO2 08/21/24 10:01 128/83 08/21/24 09:00 97.8 83 17 97 97.8 08/21/24 08:51 Room Air* 0 21 Intake/Output Intake and Output 08/21/24 07:00 Intake Total 200 ml Balance 200 ml Intake Oral 200 ml # Voids 2 General Appearance: Alert, Oriented X3 HEENT: Atraumatic, PERRLA Cardiovascular: Normal S1, Normal S2, Other (Paroxysmal atrial fibrillation) Abdomen: Normal bowel sounds, Soft, No tenderness Musculoskeletal: Normal sensory function, Normal motor function Skin: Dry, Intact Psych/Mental Status: Mental status NL, Mood NL Medications Current Medications Medications Dose Ordered Sig/Deng Route Start Time Stop Time Status Last Admin Dose Admin Clopidogrel Bisulfate 75 mg DAILY PO 08/19/24 10:00 08/21/24 10:01 75 MG Amlodipine Besylate 5 mg DAILY PO 08/19/24 10:00 08/21/24 10:01 5 MG Triamterene/HCTZ 1 cap DAILY PO 08/19/24 10:00 08/21/24 10:01 1 CAP Tamsulosin HCl 0.4 mg QPM PO 08/19/24 18:00 08/20/24 18:30 0.4 MG Allopurinol 100 mg DAILY PO 08/19/24 10:00 08/21/24 10:00 100 MG Ondansetron HCl 4 mg Q4HP PRN IV 08/18/24 22:00 Enoxaparin Sodium 40 mg DAILY SC 08/19/24 10:00 08/21/24 10:00 40 MG Acetaminophen 650 mg Q6HP PRN PO 08/18/24 22:00 Oxybutynin Chloride 5 mg Q8HR PO 08/19/24 22:00 08/21/24 06:10 5 MG Oxycodone/ Acetaminophen 1 tab Q4HP PRN PO 08/20/24 13:30 08/21/24 05:05 1 TAB Gabapentin 100 mg TID PO 08/20/24 22:00 08/21/24 06:10 100 MG Laboratory Results Laboratory Tests 08/18/24 18:28 08/20/24 11:14 Labs and/or images reviewed: Labs reviewed by me, Image(s) reviewed by me Assessment/Plan Assessment/Plan Covering for nurse practitioner Tao Gonzales -syncope: Neurology consult appreciated, placed on gabapentin, EEG normal -left arm pain, possibly secondary to severe DJD of the C-spine rule out cardiac etiology, -history of CAD with previous stent placement -acute on chronic systolic heart failure -paroxysmal atrial fibrillation -obesity -hypertension -dyslipidemia MRI brain negative carotid ultrasound negative CT angio neck negative for any large vessel occlusion C-spine CT shows severe DJD changes Plan discussed with: Patient Date of Service: August 21, 2024 Billing Provider: GUY MOREIRA MD Common Visit Codes: [id number] INP/OBS CARE(HIGH) GUY MOREIRA MD August 21, 2024 12:07
[2024-08-21] MEDS: MAGNESIUM SULFATE 1GM/100ML 100 ML IV SCH (14:09)
--- NOTE | 2024-08-21 14:35 | DVHPN2 ---
Subjective No cardiac events reported denies chest pain or shortness of breath Reviewed: Care Plan, H&P, Labs, Medications Changes from previous H/P or p: No Changes General: Per HPI Objective Vitals Vital Signs Date Time Temp Pulse Resp B/P (MAP) Pulse Ox O2 Delivery O2 Flow Rate FiO2 08/21/24 13:00 98.0 79 16 122/83 (96) 93 98.0 08/21/24 08:51 Room Air* 0 21 Intake/Output Intake and Output 08/21/24 07:00 Intake Total 200 ml Balance 200 ml Intake Oral 200 ml # Voids 2 General Appearance: Alert, Oriented X3 HEENT: Atraumatic, PERRLA Cardiovascular: Normal S1, Normal S2, Other (Normal sinus rhythm with PVCs) Abdomen: Normal bowel sounds, Soft, No tenderness Musculoskeletal: Normal sensory function, Normal motor function Skin: Dry, Intact Psych/Mental Status: Mental status NL, Mood NL Medications Current Medications Medications Dose Ordered Sig/Deng Route Start Time Stop Time Status Last Admin Dose Admin Clopidogrel Bisulfate 75 mg DAILY PO 08/19/24 10:00 08/21/24 10:01 75 MG Amlodipine Besylate 5 mg DAILY PO 08/19/24 10:00 08/21/24 10:01 5 MG Triamterene/HCTZ 1 cap DAILY PO 08/19/24 10:00 08/21/24 10:01 1 CAP Tamsulosin HCl 0.4 mg QPM PO 08/19/24 18:00 08/20/24 18:30 0.4 MG Allopurinol 100 mg DAILY PO 08/19/24 10:00 08/21/24 10:00 100 MG Ondansetron HCl 4 mg Q4HP PRN IV 08/18/24 22:00 Enoxaparin Sodium 40 mg DAILY SC 08/19/24 10:00 08/21/24 10:00 40 MG Acetaminophen 650 mg Q6HP PRN PO 08/18/24 22:00 Oxybutynin Chloride 5 mg Q8HR PO 08/19/24 22:00 08/21/24 14:10 5 MG Oxycodone/ Acetaminophen 1 tab Q4HP PRN PO 08/20/24 13:30 08/21/24 05:05 1 TAB Gabapentin 100 mg TID PO 08/20/24 22:00 08/21/24 14:10 100 MG Magnesium Sulfate/ Dextrose 100 ml @ 100 mls/hr Q1HR IV 08/21/24 14:00 08/21/24 15:59 08/21/24 14:09 100 MLS/HR Magnesium Oxide 400 mg BID PO 08/21/24 22:00 Laboratory Results Laboratory Tests 08/18/24 18:28 08/20/24 11:14 Assessment/Plan Assessment/Plan Plan/Recommendation Assessment/plan #left arm pain, rule out ACS -EKG showed no significant ST changes -Trops WNL #CAD with previous stent placement -currently on atorvastatin, Plavix, metoprolol -had PCI done in 2022 :One-vessel coronary artery disease (LCx), status post drug-eluting stent deployment in LCx #presyncope #?TIA -Carotid artery doppler reveals No hemodynamically significant stenoses. Antegrade flow in the bilateral vertebral arteries. -CTA head and neck WNL MRI head reveals IMPRESSION: 1. There is no acute intracranial process. 2. Chronic ischemic changes as described above. 3. Several small foci of blooming artifact in the left thalamic region May relate to chronic microhemorrhages. 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 Magnesium oxide 400 b.i.d. -Continue with atorvastatin, Plavix, metoprolol. -echocardiogram revealed EK 60% - follow-up with your Cardiology in outpatient setting Case discussion with Dr Echavarria. Plan discussed with: Patient, Othe Plan discussed with: Patient My Orders Orders - ABHI GREENE Procedure Category Date Status Time Magnesium Sulfate PHA 08/21/24 In Process 1gm/100ml 14:00 Magnesium Oxide PHA 08/21/24 In Process Tablet (Mag-Ox Tablet) 22:00 Date of Service: August 21, 2024 Billing Provider: RADHA ECHAVARRIA Sr., MD Common Visit Codes: CONSULT ONLY ABHI GREENE August 21, 2024 14:35
[2024-08-21] MEDS: POTASSIUM CHL 20 Meq TABLET PO ONE (14:50)
[2024-08-21] MEDS: MAGNESIUM OXIDE 400 MG TAB PO SCH (22:15)
[2024-08-22] VITALS (9 sets, daily range): BP systolic 114–143; BP diastolic 83–92; PULSE 81–98; RESP 16–18; TEMP 97.6–98.3; O2SAT 90–91
--- NOTE | 2024-08-22 12:34 | DVHPN2 ---
Reviewed: Care Plan, H&P, Labs, Medications Changes from previous H/P or p: No Changes General: Per HPI Objective Vitals Vital Signs Date Time Temp Pulse Resp B/P (MAP) Pulse Ox O2 Delivery O2 Flow Rate FiO2 08/22/24 09:39 134/95 08/22/24 09:00 97.6 90 17 90 97.6 08/22/24 08:28 Nasal Cannula* 2 28 Intake/Output Intake and Output 08/22/24 07:00 Intake Total 1930 ml Output Total 850 ml Balance 1080 ml Intake Oral 1930 ml Output Urine Total 850 ml # Voids 4 General Appearance: Alert, Oriented X3 HEENT: Atraumatic, PERRLA Cardiovascular: Normal S1, Normal S2, Other (Normal sinus rhythm with PVCs) Abdomen: Normal bowel sounds, Soft, No tenderness Musculoskeletal: Normal sensory function, Normal motor function Skin: Dry, Intact Psych/Mental Status: Mental status NL, Mood NL Medications Current Medications Medications Dose Ordered Sig/Deng Route Start Time Stop Time Status Last Admin Dose Admin Clopidogrel Bisulfate 75 mg DAILY PO 08/19/24 10:00 08/22/24 09:39 75 MG Amlodipine Besylate 5 mg DAILY PO 08/19/24 10:00 08/22/24 09:39 5 MG Triamterene/HCTZ 1 cap DAILY PO 08/19/24 10:00 08/22/24 09:39 1 CAP Tamsulosin HCl 0.4 mg QPM PO 08/19/24 18:00 08/21/24 18:00 0.4 MG Allopurinol 100 mg DAILY PO 08/19/24 10:00 08/22/24 09:39 100 MG Ondansetron HCl 4 mg Q4HP PRN IV 08/18/24 22:00 Enoxaparin Sodium 40 mg DAILY SC 08/19/24 10:00 08/22/24 09:38 40 MG Acetaminophen 650 mg Q6HP PRN PO 08/18/24 22:00 Oxybutynin Chloride 5 mg Q8HR PO 08/19/24 22:00 08/21/24 22:15 5 MG Oxycodone/ Acetaminophen 1 tab Q4HP PRN PO 08/20/24 13:30 08/22/24 09:45 1 TAB Gabapentin 100 mg TID PO 08/20/24 22:00 08/22/24 06:21 100 MG Magnesium Oxide 400 mg BID PO 08/21/24 22:00 08/22/24 09:39 400 MG Laboratory Results Laboratory Tests 08/18/24 18:28 08/20/24 11:14 Labs and/or images reviewed: Labs reviewed by me, Image(s) reviewed by me Assessment/Plan Assessment/Plan Covering for nurse practitioner Tao Gonzales -syncope: Neurology consult appreciated, placed on gabapentin, EEG normal -left arm pain, possibly secondary to severe DJD of the C-spine rule out cardiac etiology, -history of CAD with previous stent placement: cardiology consult appreciated -acute on chronic systolic heart failure -paroxysmal atrial fibrillation -obesity -hypertension -dyslipidemia MRI brain negative carotid ultrasound negative CT angio neck negative for any large vessel occlusion C-spine CT shows severe DJD changes possibly causing cervical radiculopathy Plan discussed with: Patient Date of Service: August 22, 2024 Billing Provider: GUY MOREIRA MD Common Visit Codes: [id number] INP/OBS CARE(HIGH) GUY MOREIRA MD August 22, 2024 12:34
[2024-08-23] VITALS (7 sets, daily range): BP systolic 115–144; BP diastolic 80–93; PULSE 67–100; RESP 16; TEMP 98–98.5; O2SAT 90–92
[2024-08-23] MEDS ORDERED: PERCOT PO (11:31)
--- NOTE | 2024-08-23 11:36 | DVHDS2 ---
Discharge Summary Date of Admission August 18, 2024 at 21:53 Date of Discharge: August 23, 2024 Admitting Diagnosis Possible TIA Labs/Diagnostic Data: Laboratory Results Test 08/20/24 11:14 08/19/24 04:48 08/18/24 18:57 08/18/24 18:28 Sodium Level 142 mmol/L (136-145) Potassium Level 3.3 mmol/L (3.5-5.1) Chloride Level 105 mmol/L (98-107) Carbon Dioxide Level 27 mmol/L (20-31) Anion Gap 10 (5-15) Blood Urea Nitrogen 12 mg/dL (9-23) Creatinine 1.31 mg/dL (0.700-1.30) Glomerular Filtration Rate Calc 56 mL/min (>90) BUN/Creatinine Ratio 9.2 (10.0-20.0) Serum Glucose 104 mg/dL (74-106) Calcium Level 10.9 mg/dL (8.7-10.4) Magnesium Level 1.8 mg/dL (1.6-2.6) Troponin I High Sensitivity 4 ng/L (</=54) Hepatitis B Surface Antigen Negative (Negative) Hepatitis C Antibody Negative (Negative) POC Glucose 98 mg/dl (70-106) White Blood Count 8.9 10^3/uL (4.4-10.8) Red Blood Count 5.15 10^6/uL (4.5-5.90) Hemoglobin 16.2 g/dL (13.5-17.5) Hematocrit 47.3 % (41.0-53.0) Mean Corpuscular Volume 91.8 fL (80.0-100.0) Mean Corpuscular Hemoglobin 31.4 pg (28.0-32.0) Mean Corpuscular Hemoglobin Concent 34.2 g/dL (32.0-36.0) Red Cell Distribution Width 13.7 % (11.8-14.3) Platelet Count 200 10^3/uL (140-450) Mean Platelet Volume 8.9 fL (6.9-10.8) Neutrophils (%) (Auto) 76.3 % (37.0-80.0) Lymphocytes (%) (Auto) 11.7 % (10.0-50.0) Monocytes (%) (Auto) 7.9 % (0.0-12.0) Eosinophils (%) (Auto) 3.3 % (0.0-7.0) Basophils (%) (Auto) 0.8 % (0.0-2.0) Neutrophils # (Auto) 6.8 10 ^3/uL (1.6-8.6) Lymphocytes # (Auto) 1.0 10 ^3/uL (0.4-5.4) Monocytes # (Auto) 0.7 10 ^3/uL (0-1.3) Eosinophils # (Auto) 0.3 10 ^3/uL (0-0.8) Basophils # (Auto) 0.1 10 ^3/uL (0-0.2) Nucleated Red Blood Cells 0.1 % Prothrombin Time 10.9 sec (9.3-11.8) Prothrombin Time INR 1.03 (0.9-1.15) Activated Partial Thromboplast Time 28.0 SEC (24.5-34.5) Total Bilirubin 0.5 mg/dL (0.2-1.0) Aspartate Amino Transferase (AST) 18 U/L (13-40) Alanine Aminotransferase (ALT) 21 U/L (7-40) Alkaline Phosphatase 80 U/L (46-116) B-Type Natriuretic Peptide 17.87 pg/mL (0-100) Total Protein 6.6 g/dL (5.7-8.2) Albumin 4.6 g/dL (3.2-4.8) Other Laboratory Tests 08/20/24 11:14 08/18/24 18:28 Brief Hx & Hospital Course: History of Present Illness 79-year-old male presents for evaluation of dizziness. Patient reports developing severe dizziness and losing balance earlier today. He subsequently fell to the ground and felt completely week. He states his symptoms lasted approximately 5 minutes. He states it took him nearly 20 minutes to regain some strength to be able to get back on his feet. Denies headache or blurred vision. No slurred speech. He states the dizziness comes and goes. Course of hospitalization: Further discussion with the patient reveals that not only did he lose balance, patient reports he had questionable lapse of consciousness, as well as having severe weakness to his lower extremities. Patient had CT scan of the head which was unremarkable for any acute pathology. Carotid Doppler study was also negative for any acute pathology. Echocardiogram reveals no severe aortic stenosis, with normal ejection fraction. Patient had evaluation by Cardiology and Neurology. MRI of the brain, unremarkable. EEG, unremarkable. Given the patient had persistent pain to his left arm that was intermittent, decision was made to do a CT scan of the cervical spine which did show severe stenosis , as articulated in the results: Severe left neural foraminal stenosis at C2-3. Severe bilateral neural foraminal stenosis at C3-4. Severe bilateral neural foraminal stenosis at C4-5. Severe bilateral neural foraminal stenosis at C5-6. Severe bilateral neural foraminal stenosis at C6-7. Moderate left and moderate to severe right neural foraminal stenosis C7-T1. Discussion was made with the patient regarding treatment for these findings, for which the patient may need not only spinal surgery consultation, but also weaning off of current antiplatelet and anticoagulation as well as need for rehabilitation at home, possibly [facility] facility. Patient wishes to follow up with his PCP and obtain referral to spinal surgeon at a later time. Patient will be discharged home and is instructed to continue all his home medications. Given his persistent arm pain which was resolved with Percocet, patient will have a prescription of Percocet 5/325 mg p.o. every 8 hours as needed for pain, until he sees his PCP in approximately one week. Patient was agreeable with discharge plan. All questions answered. Physical examination General: Alert and Oriented x3. No acute distress. Well-nourished. Eyes: EOMI. Anicteric. HENT: Moist mucous membranes. Lungs: Clear to auscultation bilaterally. No accessory muscle use. Cardiovascular: Regular rate and rhythm. No murmur. No JVD. Abdomen: Soft, non-tender and non-distended. No palpable masses. Extremities: No edema. Non-tender. Skin: No rashes or lesions. Warm. Neurologic: No focal neurological deficits. CN II-XII grossly intact, but not individually tested. Psychiatric: Cooperative. Appropriate mood and affect. Total time spent with patient discussing and formulating plan of care: 35 minutes. This medical document was created using an electronic medical record system with [employer] system. Although this document has been carefully reviewed, there may still be some phonetic and typographical errors. These areas are purely typographical due to imperfections of the software programs, and do not reflect any compromise in the patient's medical care. Consults/Reason for consult Cardiology: Left arm pain, rule out ACS, syncope Neurology: Syncopal episode, rule out CVA Condition at Discharge: Fair Final Diagnosis/Problems List Severe cervical spinal stenosis Secondary diagnosis: -syncope -left arm pain, ACS -history of CAD with previous stent placement -acute on chronic systolic heart failure -paroxysmal atrial fibrillation with noted unifocal PVCs -obesity -primary hypertension -dyslipidemia Discharge Disposition: Home with Health Services Discharge Instruct/Medications Diet: Cardiac 2g Na,low cholest Activity: No Restrictions, As Tolerated Follow [facility] Medications: Continue all home medications Percocet 5/325 q8hrs for pain 36 Discharge Statement: "Patient was advised to return to the ER or call 911 if any headaches, dizziness, shortness of breath, chest pain, abdominal pain, bleeding, fevers, or worsening of medical condition. Patient was counseled about treatment plan, medications, possible side effects, patientverbalized understanding. All questions were answered to the best of my ability. This discharge took greater then 30 minutes in planning, reviewing documentation, counseling the patient, and discussing with other team members." ASSESSMENT ASSESSMENT Assessment Severe cervical spinal stenosis Date of Service: August 23, 2024 Billing Provider: DESHAUN MERINO NP Common Visit Codes: [id number] DISCH DAY >30min DESHAUN MERINO NP August 23, 2024 11:36
== END 2024-08-23 16:40 | disposition home health service (06) | DRG 551 ==
LOC: ER 17:49 → OVERFLOW 21:53 → WEST WING 08-19 15:41 → TELE-WESTW 08-21 05:37
PROVIDERS: ADMIT Nurse Practitioner Acute Care; ATTEND Nurse Practitioner Acute Care
DX: M48.02 Spinal stenosis, cervical region (principal); I50.23 Acute on chronic systolic (congestive) heart failure; I24.9 Acute ischemic heart disease, unspecified; G45.9 Transient cerebral ischemic attack, unspecified; N17.9 Acute kidney failure, unspecified; I13.0 Hypertensive heart and chronic kidney disease with heart failure and stage 1 through stage 4 chronic kidney disease, or unspecified chronic kidney disease; N18.9 Chronic kidney disease, unspecified; I48.0 Paroxysmal atrial fibrillation; E66.9 Obesity, unspecified; E78.5 Hyperlipidemia, unspecified; N40.0 Benign prostatic hyperplasia without lower urinary tract symptoms; I49.3 Ventricular premature depolarization; I25.10 Atherosclerotic heart disease of native coronary artery without angina pectoris; M10.9 Gout, unspecified; I25.2 Old myocardial infarction; Z88.5 Allergy status to narcotic agent; Z79.899 Other long term (current) drug therapy; Z95.5 Presence of coronary angioplasty implant and graft; Z68.29 Body mass index [BMI] 29.0-29.9, adult
CPT/HCPCS: 36415; 70496; 70498; 70551; 71045; 72125; 80048; 80053; 82962; 83735; 83880; 84484; 85025; 85610; 85730; 86803; 87340; 93005; 93306; 93886; 95819; 99291; G0378

== ENCOUNTER 2024-10-16 13:53 | Emergency (ER) | payer OTHER ==
[~2024-10-16] VITALS: Ht 180.3 cm; Wt 92.9 kg
[~2024-10-16 13:53] MED LIST changes: -ALL100T PO; +ALLO300T2 PO; +ATOR20TA50 PO; +CLOP75TA70 PO; +MET50T PO; +PERCOT PO; +POTA80TA OR; -TRIA75TA11 PO
--- NOTE | 2024-10-16 16:34 | ED.PDOC ---
Musculoskeletal HPI Comments A 79 year-old male presents to the ED with a chief complaint of left hand pain as of X6 months ago. Patient states that approximately X6 months ago he went to a dial equipment engineer and "had skin removed" with increased pain to the left arm since. Patient states the pain is stabbing, and radiates from left thumb to shoulder. Patient additionally notes having a heart stent placed s/p stroke 1.5 years ago at [facility]. Patient has been taking bloodthinners since and reports no cardiac related issues. Patient has no further complaints at this time and otherwise denies further associated symptoms of chest pain, weakness, fever, N/V, migraine, or dizziness. Chief Complaint: Upper Extremity Time Seen by MD: 16:31 Primary Care Provider: Dr. Leung Reviewed Notes: Nurses Notes, Medications, Allergies Allergies: Coded Allergies: Morphine (Verified Allergy, Unknown, 02/01/19) Home Meds Active Scripts Gabapentin (Gabapentin) 100 Mg Cap, 1 CAP PO TID for 10 Days, #30 CAP 2 Refills Prov:DESTINEY CLEMONS MD 10/16/24 Diclofenac Sodium (Topical) (Diclofenac Sodium) 1 % Gel, 1 % TD TID for 10 Days, #100 GEL Prov:DESTINEY CLEMONS MD 10/16/24 Oxycodone W/ Acetaminophen (Percocet 5/325MG) 1 Tab Tb, 1 TAB PO TID for 5 Days, #15 TAB Prov:DESHAUN MERINO RADAR REPAIRER 08/23/24 Diclofenac Potassium (Diclofenac Potassium) 50 Mg Tab, 1 TAB PO TIDP for 10 Days, #30 TAB Prov:DESTINEY CLEMONS MD 11/20/22 Diclofenac Sodium (Topical) (Voltaren Arthritis Pain) 1 % Gel, 1 % EX TID for 10 Days, #100 GEL Prov:DESTINEY CLEMONS MD 11/20/22 Reported Medications Potassium Gluconate (POTASSIUM GLUCONATE) 80 Mg Tab, 80 MG OR, TAB 08/19/24 Metoprolol Tartrate (LOPRESSOR TABLET) 50 Mg Tb, 0.5 TAB PO BID, #60 TAB 5 Refills 08/19/24 Clopidogrel Bisulfate (CLOPIDOGREL) 75 Mg Tab, 1 TAB PO DAILY, #90 TAB 1 Refill 08/19/24 Allopurinol (Allopurinol) 300 Mg Tab, 100 MG PO DAILY, TAB 08/19/24 Atorvastatin Calcium (ATORVASTATIN CALCIUM) 20 Mg Tab, 1 TAB PO DAILY, #30 TAB 5 Refills 08/19/24 Primidone (MYSOLINE TABLET) 50 Mg Tb, 50 MG GT for TREMORS, TAB 10/24/22 Modafinil (MODAFINIL) 100 Mg Tab, 100 MG PO for SLEEP DISORDER, TAB 10/24/22 Tamsulosin Hcl (Tamsulosin Hcl) 0.4 Mg Cap, 0.4 MG PO QPM 10/24/22 Amlodipine Besylate (Amlodipine Besylate) 10 Mg Tab, 1 TAB PO DAILY for HTN 10/24/22 Hydrocodone-Acetaminophen (Medora 10-325 mg) 1 Tab Tab, 0.5 TAB PO BIDPRN, TAB 07/01/16 Information Source: Patient Mode of Arrival: Ambulatory Location: Left Extremity Location: Hand Prehospital treatment: None Severity: Moderate Able to Move Extremity: No Bear Weight: Limited Pain: Moderate Circumstances: Spontaneous Onset of Symptoms: Spontaneous Symptoms: Pain Last Tetanus: UTD Associated signs and symptoms: Arm pain, Hand pain Past Medical History PAST MEDICAL HISTORY: CAD, Gout, High Lipids, HTN, [place] Past Medical History (Other): Renal Kidney Disease Surgical History: PTCA Family History Family History: Reviewed,noncontributory to illness Social History Smoker: Non-Smoker Alcohol: Denies ETOH Use Drugs: Denies Drug Use Lives In: Home Constitutional: denies: chills, diaphoresis, fatigue, fever, malaise, sweats, weakness, others EENTM: denies: blurred vision, double vision, ear bleeding, ear discharge, ear drainage, ear pain, ear ringing, eye pain, eye redness, hearing loss, mouth pain, mouth swelling, nasal discharge, nose bleeding, nose congestion, nose pain, photophobia, tearing, throat pain, throat swelling, voice changes, others Respiratory: denies: cough, hemoptysis, orthopnea, SOB at rest, shortness of breath, SOB with excertion, stridor, wheezing, others Cardiovascular: denies: chest pain, dizzy spells, diaphoresis, Dyspnea on exertion, edema, irregular heart beat, left arm pain, lightheadedness, palpitations, PND, syncope, others Gastrointestinal: denies: abdomen distended, abdominal pain, blood streaked bowels, constipated, diarrhea, dysphagia, difficulty swallowing, hematemesis, melena, nausea, poor appetite, poor fluid intake, rectal bleeding, rectal pain, vomiting, others Genitourinary: denies: burning, dysuria, flank pain, frequency, hematuria, incontinence, penile discharge, penile sore, pain, testicle pain, testicle swelling, urgency, others Neurological: denies: dizziness, fainting, headache, left sided numbness, left sided weakness, numbness, paresthesia, pre-existing deficit, right sided numbness, right sided weakness, seizure, speech problems, tingling, tremors, weakness, others Musculoskeletal: reports: others (Left Hand Pain ); denies: back pain, gout, joint pain, joint swelling, muscle pain, muscle stiffness, neck pain Integumetry: denies: bruises, change in color, change in hair/nails, dryness, laceration, lesions, lumps, rash, wounds, others Allergic/Immunocompromised: denies: Difficulty Healing, Frequent Infections, Hives, Itching, others Hematologic/Lymphatic: denies: anemia, blood clots, easy bleeding, easy bruising, swollen glands, others Endocrine: denies: excessive hunger, excessive sweating, excessive thirst, excessive urination, flushing, intolerance to cold, intolerance to heat, unexplained weight gain, unexplained weight loss, others Psychiatric: denies: anxiety, bipolar disorder, depression, hopeless, panic disorder, schizophrenia, sleepless, suicidal, others All Other Systems: Reviewed and Negative Physical Exam General Appearance: Mild Distress HEENT: Normal ENT Inspection, PERRL/EOMI Neck: Full Range of Motion, Non-Tender, Normal, Normal Inspection Respiratory: Chest Non-Tender, Lungs Clear, No Accessory Muscle Use, No Respiratory Distress, Normal Breath Sounds Cardiovascular: No Edema, No JVD, No Murmur, No Gallop, Normal Peripheral Pulses, Regular Rate/Rhythm Breast Exam: Deferred Gastrointestinal: No Organomegaly, Non Tender, No Pulsatile Mass, Normal Bowel Sounds, Soft Genitalia: Deferred Pelvic: Deferred Rectal: Deferred Extremities: No calf tenderness, Normal capillary refill, Normal inspection, Normal range of motion, Non-tender, No pedal edema Musculoskeletal : Location: Left Extremity Location: Hand Apperance: Normal, Tenderness: Moderate, Other (Patient came to the ER complaining of left arm mostly at the snuffbox shooting pain had all kind of workup were normal but the pain is still there) Neurologic: Alert, long winder tender II-XII nml as Tested, No Motor Deficits, Normal Affect, Normal Mood, No Sensory Deficits Cerebellar Function: Normal Reflexes: Normal Skin: Dry, Normal Color, Warm Peripheral Pulses: 1+ carotid (R), 1+ carotid (L) Lymphatic: No Adenopathy Was a procedure done? Was a procedure done?: No Differential Diagnosis EXT Differential Diagnosis: Cellulitis, Deep Vein Thrombosis, Fracture, Sprain, Laceration, DJD, Strain, Arthritis Other Differential Diagnosis Cervical radiculopathy navicular fracture carpal tunnel syndrome angina X-Ray, Labs, Meds, VS Vital Signs Date Time Temp Pulse Resp B/P (MAP) Pulse Ox O2 Delivery O2 Flow Rate FiO2 10/16/24 17:09 97.9 71 16 122/80 (94) 93 97.9 10/16/24 17:09 71 16 93 Room Air 10/16/24 14:05 97.7 103 16 126/80 (95) 93 97.7 Time of 1ST Reevaluation: 16:30 Reevaluation 1ST: Unchanged Time of 2ND Reevaluation: 16:38 Reevaluation 2ND: Unchanged Consultation: PCP Patient Education/Counseling: Diagnosis, Treatment, Prognosis, Need For Follow Up Family Education/Counseling: Diagnosis, Treatment, Prognosis, Need For Follow Up, No Family Present Departure 1 Departure Time of Disposition: 16:38 Impression: Primary Impression: Cervical stenosis of spinal canal Additional Impression: Radiculitis of left cervical region Disposition: 01 HOME / SELF CARE / HOMELESS Condition: Fair Additional Instructions: Local heat to the neck follow up with the neurosurgeon surgeon e-Prescriptions Gabapentin (Gabapentin) 100 Mg Cap 1 CAP PO TID for 10 Days, #30 CAP 2 Refills Prov: DESTINEY CLEMONS MD 10/16/24 Diclofenac Sodium (Topical) (Diclofenac Sodium) 1 % Gel 1 % TD TID for 10 Days, #100 GEL Prov: DESTINEY CLEMONS MD 10/16/24 Discharged With: Self Critical Care Note Critical Care Time?: No Stability Stability form required: No Heart Score Heart Score: Heart Score Response (Comments) Value History Slightly Suspicious 0 EKG N/A 0 Age >65 2 Risk Factors 1 or 2 risk factors 1 Troponin N/A 0 Total 3 I personally scribed for DESTINEY CLEMONS MD ([email or web address]) on 10/16/24 at 16:34. Electronically submitted by America Polanco ([facility]). DESTINEY CLEMONS MD Oct 16, 2024 16:34
[2024-10-16] MEDS ORDERED: DICL1GEL73 TD (16:41)
[2024-10-16] MEDS ORDERED: GABA-1308 PO (16:41)
[2024-10-16 17:09] VITALS: BP 122/80; PULSE 71; RESP 16; TEMP 97.9; O2SAT 93
== END 2024-10-16 17:16 | disposition home or self-care (01) ==
LOC: ER 13:53
DX: M48.02 Spinal stenosis, cervical region (principal); M54.12 Radiculopathy, cervical region; I10 Essential (primary) hypertension; E78.5 Hyperlipidemia, unspecified; I21.9 Acute myocardial infarction, unspecified; I25.10 Atherosclerotic heart disease of native coronary artery without angina pectoris; M10.9 Gout, unspecified; Z79.899 Other long term (current) drug therapy; Z86.73 Personal history of transient ischemic attack (TIA), and cerebral infarction without residual deficits; Z95.5 Presence of coronary angioplasty implant and graft; Z88.5 Allergy status to narcotic agent
CPT/HCPCS: 29125